=== PATIENT | female | born 1980 | race Caucasian/White ===

== ENCOUNTER 2018-11-15 06:13 | Inpatient (IN) | payer OTHER ==
--- NOTE | 2018-11-11 09:37 | HP ---
Admitting History and Physical - Primary Care Physician PCP: Aric Benítez - Admission Chief Complaint: left breast cancer History of Present Illness: 38 yo female was noted to have a left breast mass on self exam August 2018. The patient underwent a mammo and US which showed some architectural distortion and calcifications toward the periareolar upper outer aspect spanning about 3 cm. US showed the density at 2 oclock as well as left 12 oclock 5 mm mass. The right breast was also noted to have a 7 mm mass at 5 oclock. Patient underwent core bx of these lesions. 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 The left 12 oclcok density was c/w intermediate grade DCIS and the right breast 5 oclock lesion was c/w nodular fibrotic stroma. 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 Patient is now presenting for bilateral mastectomy, left snbx, poss, andx with lympho and OPHELIA reconstruction. History Source: Patient Limitations to Obtaining History: No Limitations - Past Medical History Additional Past Medical History: none - Past Surgical History Past Surgical History: Yes: None Home Medications - Allergies Allergies/Adverse Reactions: Allergies Allergy/AdvReac Type Severity Reaction Status Date / Time No Known Allergies Allergy Verified 11/11/18 09:38 - Home Medications Home Medications: Ambulatory Orders NK [No Known Home Medication] 11/11/18 Family Medical History Family History: Denies Review of Systems - Review of Systems Constitutional: reports: No Symptoms Neck: reports: No Symptoms Cardiovascular: reports: No Symptoms Physical Examination Constitutional: Yes: Well Nourished Cardiovascular: Yes: WNL Respiratory: Yes: WNL Breast(s): Yes: Other (Ptotic B-cup breast with distortion and retraction around the periareolar region of the left nipple areolar complex. Palpable mass approx 2.5 cm noted aroung the left periareolar region. There are no palpable cervical, axillary or supraclavicular adenopathy noted bilaterally.) Problem List - Problems (1) Breast cancer, left Code(s): C50.912 - MALIGNANT NEOPLASM OF UNSPECIFIED SITE OF LEFT FEMALE BREAST Qualifiers: Breast location: overlapping sites of breast Estrogen receptor status: positive Patient sex: female Qualified Code(s): C50.812 - Malignant neoplasm of overlapping sites of left female breast; Z17.0 - Estrogen receptor positive status [ER+] Assessment/Plan Plan: Bilateral mastectomy (right prophylactic), left snbx, poss andx, lymphoscintogram with OPHELIA reconstruction
[2018-11-15 06:43] VITALS: BMI 20.8
[2018-11-15] MEDS ORDERED: BUPIVACAINE HCL/PF 0.25% (2.5MG/ML) 10 ML VIAL ONE (07:04)
[2018-11-15] MEDS ORDERED: LIDOCAINE 1%-EPI 1:100,000 30 ML MDV IJ ONE (07:04)
[2018-11-15] MEDS ORDERED: BUPIVACAINE LIPOSOME/PF (EXPAREL) 266 MG/20 ML VIAL ONE (07:04)
[2018-11-15] MEDS ORDERED: HEPARIN NA (PORCINE) 5,000 UNITS/ML 1ML VIAL ONE ×2 (07:04→14:00)
[2018-11-15] MEDS ORDERED: PAPAVERINE HCL 30 MG/1 ML 10 ML VIAL NR ONE (07:04)
[2018-11-15] MEDS ORDERED: MIDAZOLAM HCL 2 MG/2 ML SINGLE DOSE VIAL ONE (07:31)
[2018-11-15] MEDS ORDERED: fentaNYL CITRATE 250 MCG/5 ML VIAL ONE (07:31)
[2018-11-15] MEDS ORDERED: SUCCINYLCHOLINE CHLORIDE 200 MG/10 ML SYRINGE ONE (07:33)
[2018-11-15] MEDS ORDERED: PROPOFOL 20 ML ONE ×3 (07:33)
[2018-11-15] MEDS ORDERED: ROCURONIUM BROMIDE 50 MG/5 ML SYRINGE ONE ×3 (07:33→10:30)
[2018-11-15] MEDS ORDERED: EPHEDRINE SULFATE/0.9% NACL/PF 50 MG/10 ML SYRINGE NR ONE (07:34)
[2018-11-15] MEDS ORDERED: LIDOCAINE HCL/PF 2% SDV 5ML VIAL ONE (07:36)
[2018-11-15] MEDS ORDERED: ISOSULFAN BLUE 10 MG/ML VIAL SQ ONE (07:38)
[2018-11-15] MEDS ORDERED: DEXMEDETOMIDINE HCL 200 MCG/2 ML IVPB ONE (07:52)
[2018-11-15] MEDS ORDERED: ceFAZolin SODIUM 1 GM VIAL IVPB ONE ×2 (08:40→13:15)
[2018-11-15] MEDS ORDERED: ceFAZolin SODIUM 1 GM VIAL ONE (08:45)
[2018-11-15] MEDS ORDERED: DEXAMETHASONE SOD PHOSPHATE 4 MG/1 ML VIAL ONE ×2 (09:11→12:47)
[2018-11-15] MEDS ORDERED: MINERAL OIL/PETROLATUM,WHITE 3.5 GM TUBE ONE (11:45)
[2018-11-15] MEDS ORDERED: SEVOFLURANE 250 ML BTL ONE (11:45)
[2018-11-15] MEDS ORDERED: CALCIUM CHLORIDE 1 GM/10 ML *DISP.SYRIN ONE ×2 (11:51→12:46)
[2018-11-15] MEDS ORDERED: BUPIVACAINE HCL/PF 0.25% (2.5MG/ML) 10 ML VIAL IJ ONE (12:00)
[2018-11-15] MEDS ORDERED: BUPIVACAINE LIPOSOME/PF (EXPAREL) 266 MG/20 ML VIAL NR ONE (12:00)
[2018-11-15] MEDS ORDERED: KETOROLAC TROMETHAMINE 30 MG/1 ML VIAL ONE (12:45)
[2018-11-15] MEDS ORDERED: LIDOCAINE HCL 2% 100 MG/5 ML DISP.SYRIN ONE (12:46)
[2018-11-15] MEDS ORDERED: MAGNESIUM SULF 50% (8.12 MEQ/2 ML-1 GM VIAL) ONE (12:46)
[2018-11-15] MEDS ORDERED: METOPROLOL TARTRATE 5 MG/5 ML VIAL ONE (12:47)
[2018-11-15] MEDS ORDERED: LIDOCAINE HCL 2% JELLY (5 ML/TUBE) ONE (12:47)
[2018-11-15] MEDS ORDERED: ALBUTEROL SO4 8 GM HFA INHALER IH ONE (12:47)
[2018-11-15] MEDS ORDERED: CLINDAMYCIN PHOSPHATE 600 MG/4 ML VIAL ONE (12:47)
--- NOTE | 2018-11-15 13:08 | OP ---
DATE OF OPERATION: 11/15/2018 PREOPERATIVE DIAGNOSIS: Left breast cancer centrally located. POSTOPERATIVE DIAGNOSIS: Left breast cancer centrally located. PROCEDURE: Bilateral total mastectomies with left axillary sentinel node biopsy followed by axillary lymph node dissection and bilateral deep flap reconstructions. PRIMARY SURGEON: Matthew Brown M.D. HVAC SERVICE MANAGER: MARYANN Michelle PRIMARY SURGEON FOR THE BILATERAL DEEP FLAP RECONSTRUCTIONS: Matthew Jimenez M.D. with his Co-Surgeon: Pardeep Phillip M.D. COMPLICATIONS: None. INDICATIONS: Briefly, the patient is a 38-year-old G4, P4 premenopausal female of descent from [facility]. No family history of breast or ovarian cancer. She noticed a left central periareolar upper outer quadrant breast mass and underwent a mammography and ultrasound in August 2018 showing architectural distortion and pleomorphic calcifications in the left breast central upper quadrant over an area of about 3 cm. Ultrasound showed a left breast 2 o'clock periareolar 1.3 cm density 2 cm from the nipple. She underwent ultrasound-guided core biopsies of the left breast 2 o'clock and 12 o'clock regions and the 2 o'clock region showed a moderately differentiated invasive duct cancer, which was ER/WI positive, HER2/bobo negative and the left breast 12 o'clock region showed DCIS. The patient was advised on undergoing a mastectomy after MRI showed a separate left breast 9 o'clock density as well. She had no adenopathy. She was seen by Plastic Surgery and the patient opted on bilateral mastectomies and deep flap reconstruction. She understood the need for a sentinel node biopsy and possible axillary lymph node dissection. PROCEDURE: She was brought in for the procedure on November 15, 2018. She first went to Nuclear Medicine where lymphoscintigraphy was performed with a periareolar injection of technetium 99. She was then brought to the holding area. In the holding area, site verification was made and informed consent was obtained. She was marked preoperatively by the Plastic surgeons. She was brought into the operating room and laid on the OR table in the supine position. Venodynes were placed on the lower extremities prior to induction. She received 2 g of Ancef prior to incision. She underwent general endotracheal anesthesia. Three mL of Lymphazurine Blue were injected intradermally around the left breast nipple areola complex, massage was instituted. The Plastic surgeons marked out the perforating vessels in the abdominal wall and then the patient was sterilely prepped and draped in the usual fashion with both breasts prepped as well as the abdomen and the left arm was prepped in the field. At this point timeout was performed. The patient did have a Bishop catheter placed prior to prep and draping the patient. The left axis sentinel node biopsy was performed. An incision was made just below the hair-bearing area of the left axilla and dissection was undertaken and a blue lymphatic was easily seen coursing to a hot blue level 1 axillary lymph node. This node was removed, had a 10-second gamma count of 13,453. A 2nd sentinel node was found in the level 2 region with a 10-second gamma count of 10,354 and both of these nodes were sent for frozen section and both nodes came back positive for cancer. Background counts after removal of these 2 nodes was 97. The mastectomy was then performed on the left side through a periareolar incision with the skin sparing approach. Skin flaps were raised using electrocautery superiorly to the level of the clavicle, medially to the level of the sternum, laterally to the level of the latissimus, and inferiorly below the level of the inframammary fold. The breast was taken out of the pectoralis major muscle from medial to lateral completely removed intact. It was oriented with the long lateral, short superior suture. Specimen radiograph showed removal of the clips in question and the breast was weighed. Hemostasis was achieved. A separate lateral anterior margin was taken on the anterior lateral skin flap and sent separately as anterolateral margin with the suture marking the biopsy cavity side. At this time, the axillary lymph node dissection was undertaken through the mastectomy wound. It was a level 1; level 2 dissection using the axillary vein as the superior border of the dissection, latissimus as the lateral border and pec minor as the medial border. The axillary nodes were completely cleared out, then the long thoracic and thoracodorsal nerve was identified and spared throughout its entire course. The 2nd intercostal brachial nerve was also spared. Hemostasis was achieved and the wound was copiously irrigated with warm sterile saline. At this point instruments, gloves, gowns were changed and the right breast was approached. A prophylactic right breast mastectomy was performed through a circumareolar approach removing the entire nipple areola complex in a skin sparing fashion. Again, the skin flap was raised using the cautery. The skin flap was raised superiorly to the level of the clavicle, medially to the level of the sternum, laterally to the level of the latissimus, and inferiorly below the level of the inframammary fold. The breast was taken out of the pectoralis major muscle from medial to lateral and completely removed intact. It was oriented with the long lateral, short superior suture and weighed to allow for appropriate cosmetic result. Hemostasis was achieved and the wound was copiously irrigated with warm sterile saline. At this point, Drs. Jimenez and Marjan had already started harvesting the abdominal wall tissue for the deep flap reconstruction. The rest of the dictation will be dictated by Plastic Surgery, as well as all wound closure. All sponge and needle counts were correct at this point of the case and estimated blood loss was about 200 mL after the bilateral mastectomies. MATTHEW BROWN M.D. CLEO/[id number]
[2018-11-15] MEDS ORDERED: HYDROmorphone HCl 2 MG/ML VIAL ONE ×2 (16:19→17:35)
[2018-11-15] MEDS ORDERED: NEOSTIGMINE METHYLSULFATE 0.5 MG/ML - 10 ML MDV ONE (16:28)
[2018-11-15] MEDS ORDERED: ACETAMINOPHEN 325 MG TABLET (FP) PO PRN (17:26)
[2018-11-15] MEDS ORDERED: DEXTROSE 5%-0.45% SALINE 1,000 ML IV SCH (17:30)
[2018-11-15] MEDS: HYDROmorphone HCl 2 MG/ML VIAL IVPB PRN ×3 (17:35→18:10)
[2018-11-15] MEDS ORDERED: ONDANSETRON 4 MG/2 ML VIAL IVPUSH PRN (17:43)
[2018-11-15] MEDS ORDERED: LACTATED RINGERS SOLUTION 1,000 ML IV SCH (17:45)
[2018-11-15] MEDS ORDERED: ENOXAPARIN NA (PORCINE) 40 MG/0.4 ML DISP.SYRIN SQ ONE ×2 (17:45→19:12)
[2018-11-15] MEDS: DEXTROSE 5%-0.45% SALINE 1,000 ML IV SCH (19:00)
--- NOTE | 2018-11-15 20:24 | CONSULT ---
Consultation: REQUESTING PROVIDER: Dr. Benítez CONSULT REQUEST: We have been asked to medically evaluate this patient for post- op care. HISTORY OF PRESENT ILLNESS: 38 y/o F with no significant PMH who presented s/p b/l mastectomy, L sentinel LN biopsy, deep flap OPHELIA, axillary LN dissection- PO day 0, by Dr. Benítez and Precious. Upon examination, pt lethargic and resting. VS currently stable - afebrile, BP 100/70, HR 98. Per chart, pt underwent core bx of R and L breast lesions prior to sx. Left 2:00 lesion was consistent w/invasive ductal ca ER/DC( +), HER 2 (-). L 12:00 density was c/w intermediate grade DCIS and the R breast 5:00 lesion was c/w nodular fibrotic stroma. 500ml EBL. Pt admitted to ICU for post-op care and f/u. Currently on jose hugger, w/kennedy, and 2 COLEEN drains on R, 3 COLEEN drains on L breast. +kennedy +2 COLEEN drains on R, 3 COLEEN drains on L breast +jose hugger REVIEW OF SYSTEMS: as above PHYSICAL EXAMINATION Vital Signs 11/15/18 11/15/18 11/15/18 17:50 18:05 18:20 Temperature Pulse Rate 65 66 70 Respiratory 14 14 14 Rate Blood Pressure 96/56 L 91/60 90/55 L O2 Sat by Pulse 99 99 99 Oximetry (%) GENERAL: Resting comfortably. in NAD HEAD: Normal with no signs of trauma. EYES: Pupils equal, round and reactive to light EARS, NOSE, THROAT: Ears normal, nares patent, oropharynx clear without exudates. Moist mucous membranes. NECK: Normal range of motion, supple LUNGS: CTA b/l CHEST: +flap w/ doppler pulse . +COLEEN drains b/l with 3-4ml serosanguineous output HEART: Regular rate and rhythm, normal S1 and S2 without murmur, rub or gallop. ABDOMEN: Soft, nontender, not distended, normoactive bowel sounds, no guarding. +horizontal incision . c/d/i LOWER EXTREMITIES: 2+ dp pulses, warm, well-perfused. No calf tenderness. No peripheral edema. NEUROLOGICAL: Cranial nerves II-XII intact. Laboratory Results 11/15/18 11/15/18 11/15/18 06:25 06:25 06:25 Beta HCG, Quant < 1.0 Serum , Qual Cancelled Blood Type AB POSITIVE Antibody Screen Negative 11/15/18 08:15 Beta HCG, Quant Serum , Qual Blood Type AB POSITIVE Antibody Screen ASSESSMENT/PLAN: 38 y/o F with no significant PMH who presented s/p b/l mastectomy, L sentinel LN biopsy, deep flap OPHELIA, axillary LN dissection- PO day 0, by Dr. Tate. #Neuro -intact, AAOx3 #Heme/onc s/p b/l mastectomy, L sentinel LN biopsy, deep flap OPHELIA, axillary LN dissection - PO day 0 -c/w jose hugger to flap - continuous -flap - doppler q1h. call sx immediately if cannot detect -f/u drain output -c/w ancef -lovenox for a/c per sx -asa 325mg qd -tylenol PRN, and dilaudid 1-2 mg IVPB q4h PRN per anesthesia for pain control -zofran PRN for nausea. last qtc 418ms -post-op CBC in AM per sx #F/E/N d51/2ns 125 cc/hr continue to follow lytes clear liq diet. advance as tolerated #PPX lovenox per sx SCD's, TREVIN's #Lines/tubes +kennedy +2 COLEEN drains on R, 3 COLEEN drains on L breast #Dispo admitted to ICU Dispo: We will continue to follow the patient. Thank you for this consultative opportunity. Visit type - Emergency Visit Emergency Visit: No - New Patient This patient is new to me today: Yes Date on this admission: 11/15/18 - Critical Care Critical Care patient: Yes Total Critical Care Time (in minutes): 37 Critical Care Statement: The care of this patient involved high complexity decision making to prevent further life threatening deterioration of the patient 's condition and/or to evaluate & treat vital organ system(s) failure or risk of failure.
[2018-11-15] MEDS ORDERED: HYDROmorphone HCl 2 MG/ML VIAL IVPUSH ONE (20:42)
[2018-11-15] MEDS ORDERED: CEFAZOLIN 1 GM/D5W 1 GM/50 ML BAG IVPB SCH (21:00)
[2018-11-15] MEDS: DOCUSATE SODIUM 100 MG CAPSULE (FP) PO SCH (21:42)
[2018-11-15] MEDS ORDERED: SODIUM CHLORIDE 500 ML IV STA (23:04)
[2018-11-15] MEDS ORDERED: ACETAMINOPHEN 1000 MG/100 ML VIAL (NON FORMULARY) IVPB ONE (23:45)
[2018-11-16] MEDS ORDERED: SODIUM CHLORIDE 500 ML IV STA (00:24)
[2018-11-16] MEDS: HYDROmorphone HCl 2 MG/ML VIAL IVPB PRN ×2 (01:03→04:15)
[2018-11-16 06:32] LABS: HEMATOCRIT 22.5 % (32.4-45.2); HEMOGLOBIN 7.5 GM/dL (10.7-15.3); MCHC 33.5 g/dl (32.0-36.0); MEAN CELL VOLUME 83.7 fl (80-96); MEAN PLT VOLUME 8.1 fl (7.5-11.1); PLATELET COUNT 230 K/MM3 (134-434); RBC 2.69 M/mm3 (3.60-5.2); WHITE BLOOD COUNT 8.6 K/mm3 (4.0-10.0)
[2018-11-16] MEDS: CEFAZOLIN 1 GM in DEXTROSE 5%-WATER - 50 ML IVPB SCH ×4 (06:46→21:29)
[2018-11-16] MEDS ORDERED: PT OWN MED DRAWER 7, Y5N ONE (06:52)
[2018-11-16] MEDS: ACETAMINOPHEN 1000 MG/100 ML VIAL (NON FORMULARY) IVPB PRN ×3 (06:56→20:10)
[2018-11-16 07:05] LABS: BLOOD UREA NITROGEN 6.2 mg/dL (7-18); CALCIUM 7.3 mg/dL (8.5-10.1); CREATININE 0.6 mg/dL (0.55-1.3); MAGNESIUM 1.3 mg/dL (1.8-2.4); PHOSPHOROUS 3.4 mg/dL (2.5-4.9); POTASSIUM 3.7 mmol/L (3.5-5.1)
[2018-11-16] MEDS ORDERED: DEXTROSE 5%-WATER - 50 ML IVPB ONE ×4 (07:59→23:29)
[2018-11-16] MEDS ORDERED: ceFAZolin SODIUM 1 GM VIAL ONE ×4 (07:59→23:28)
[2018-11-16] MEDS ORDERED: MAGNESIUM SULF 50% (8.12 MEQ/2 ML-1 GM VIAL) IVPB ONE (08:00)
--- NOTE | 2018-11-16 08:02 | PN ---
Progress Note (short form) - Note Progress Note: POD 1, s/p Bilateral mastectomy, left sentinel lymph node biopsy, axillary lymph node dissection, reconstruction with bilateral OPHELIA flaps Pt seen and examined. Reports pain in the right side of her abdomen (RLQ). No n/ v overnight. Having dizziness overnight reports it occurs after administration of pain meds. Has not been oob yet. Bishop in place. Denies cp/sob, calf tenderness. Vital Signs Temp 98.4 F 11/16/18 06:00 Pulse 92 H 11/16/18 06:00 Resp 19 11/16/18 06:00 BP 88/57 L 11/16/18 06:00 Pulse Ox 98 11/15/18 21:00 Intake & Output 11/15/18 11/15/18 11/16/18 11:59 23:59 11:59 Intake Total 4250 700 2575 Output Total 1050 1162 620 Balance 3200 -462 1955 Intake: IV 4250 700 2375 D5-1/2Ns - 1,000 ml @ 125 1375 mls/hr IV ASDIR ALTA Rx#: [id number] Normal Saline - 500 ml @ 500 500 mls/hr IV ASDIR STA Rx#:[id number] Normal Saline - 500 ml @ 500 500 mls/hr IV ASDIR STA Rx#:[id number] IVPB 200 Oral 0 Output: Drainage 362 120 #1 Right Upper Breast 80 40 #2 Right Lower Abdomen 32 15 #3 Left Upper Breast 47 25 #4 Left Upper Chest 60 30 Left Abdomen 12 10 Urine 800 800 500 Bishop 500 Estimated Blood Loss 250 Other: Voiding Method Indwelling Catheter Bowel Movement No CBC, BMP 11/16/18 05:45 11/16/18 05:45 Gen: awake, alert, nad ENT: Pale, + conjunctival pallor Chest: Drains (chest and abdominal) in place with scant serosanguinous drainage in reservoirs. All drains stripped. Bilateral OPHELIA flaps appear normal in color , + surrounding ecchymosis. Incisions c/d/i. No erythema or drainage. Abdomen: incision intact with Prineo dressing in place. Minimal ecchymosis, no erythema or drainage. Minimal edema noted. Umbilical dressing c/d/i, umbilical incisions intact with minimal ecchymosis, no erythema or drainage. LE's: b/l calf soft, nt, no edema A/P: 38 y/o F with recent diagnosis of L invasive ductal ca ER/LA pos HER 2 negative, now POD 1, s/p Bilateral mastectomy, left sentinel lymph node biopsy, axillary lymph node dissection, reconstruction with bilateral OPHELIA flaps. Drain outputs: R upper breast: 120ml total since OR (60ml overnight) R lower abdomen: 47ml since OR (25ml ON) L upper breast: 72ml since OR (40ml ON) L upper chest: 90ml since OR (50ml ON) L lower abdomen: 22 ml since OR (15ml overnight) Per RN note in EMR pt with 30ml urine output at 11:37pm, 500ml bolus given. UOP 500ml for remainder of shift with additional 350ml this morning. H/H 7.5/22.5 this AM (preop 12.7/38.8 on preop labs from 11/14). On examination with Dr Phillip pt normotensive without tachycardia. Will re-evaluate pt for possible transfusion later this morning when she gets oob. -Pain regimen adjusted: Dilaudid d/c'ed, Toradol 30mg q6hrs prn, Ofirmev 1g q6hrs scheduled, Oxy 5/10mg q4hrs prn -Monitor VS -Continue OPHELIA flap checks q1hr for 24 hrs -Monitor and record drain outputs -DVT prophylaxis with Lovenox 40mg qd, scds, early ambulation -Keep Nadine hugger in place -Asa 325qd for flaps -Bowel regimen -Feosol 325mg TID ordered -Advance diet to clears (No caffeine, no chocolate), keep IVF at 75ml/hr may heplock IV when pt tolerating po -OOB with PT (pt must remain flexed at core) -CBC ordered for AM -Will f/u this afternoon pt seen and examined with attending Dr Phillip
[2018-11-16] MEDS ORDERED: oxyCODONE HCL 5 MG TABLET PO PRN (08:27)
[2018-11-16] MEDS ORDERED: POLYETHYLENE GLYCOL 3350 119 GM BTL PO PRN (08:29)
--- NOTE | 2018-11-16 09:13 | PN ---
Progress Note, Physician Chief Complaint: S/P bilateral mastectomy with left andx and OPHELIA reconstruction POD#1 History of Present Illness: Patient was seen today at the bedside and reports an episode of vomiting after attempting clear liquid intake this am. She also is having right lower quad abdominal pain near the incision. She denies any SOB or awareness of tachycardia. - Current Medication List Current Medications: Active Medications Acetaminophen (Ofirmev Injection -) 1,000 mg IVPB Q6H PRN PRN Reason: PAIN 1-3 Last Admin: 11/16/18 06:56 Dose: 1,000 mg Ascorbic Acid (Vitamin C -) 250 mg PO BID [facility] Aspirin (Ecotrin -) 325 mg PO DAILY [facility] Docusate Sodium (Colace -) 100 mg PO BID [facility] Last Admin: 11/15/18 21:42 Dose: Not Given Enoxaparin Sodium (Lovenox -) 40 mg SQ DAILY [facility] Ferrous Sulfate (Feosol -) 325 mg PO TIDCM [facility] Dextrose/Sodium Chloride (D5-1/2ns -) 1,000 mls @ 125 mls/hr IV ASDIR [facility] Last Admin: 11/15/18 19:00 Dose: 200 mls Cefazolin Sodium 1 gm/ (Dextrose) 50 mls @ 100 mls/hr IVPB Q6H-IV [facility] Stop: 11/17/18 21:29 Last Admin: 11/16/18 06:46 Dose: 100 mls/hr Ketorolac Tromethamine (Toradol Injection -) 30 mg IVPUSH Q6H PRN PRN Reason: PAIN LEVEL 4 - 6 Stop: 11/21/18 08:30 Ondansetron HCl (Zofran Injection) 4 mg IVPUSH Q6H PRN PRN Reason: NAUSEA AND/OR VOMITING Oxycodone HCl (Roxicodone -) 5 mg PO Q4H PRN PRN Reason: PAIN 4-6; IF KETORLAC NT WORK Oxycodone HCl (Roxicodone -) 10 mg PO Q4H PRN PRN Reason: PAIN LEVEL 7-10 Polyethylene Glycol (Miralax (For Daily Use) -) 17 gm PO DAILY PRN PRN Reason: CONSTIPATION Promethazine HCl (Phenergan Injection -) 12.5 mg IVPUSH Q6H PRN PRN Reason: NAUSEA-FOR RESCUE AFTER 15 MIN Senna (Senna -) 1 tab PO HS ALTA - Objective Vital Signs: Vital Signs Temperature 98.4 F 11/16/18 06:00 Pulse Rate 92 H 11/16/18 06:00 Respiratory Rate 11/16/18 06:00 Blood Pressure 88/57 L 11/16/18 06:00 O2 Sat by Pulse Oximetry (%) 98 11/15/18 21:00 Constitutional: Yes: Calm HENT: Yes: Other (Patient's lips and face are pale.) Labs: CBC, BMP 11/16/18 05:45 11/16/18 05:45 Problem List - Problems (1) Breast cancer, left Code(s): C50.912 - MALIGNANT NEOPLASM OF UNSPECIFIED SITE OF LEFT FEMALE BREAST Qualifiers: Breast location: overlapping sites of breast Estrogen receptor status: positive Patient sex: female Qualified Code(s): C50.812 - Malignant neoplasm of overlapping sites of left female breast; Z17.0 - Estrogen receptor positive status [ER+]
[2018-11-16] MEDS: DOCUSATE SODIUM 100 MG CAPSULE (FP) PO SCH ×2 (09:27→21:29)
[2018-11-16] MEDS: ASPIRIN 325 MG ENTERIC COATED TABLET (FP) PO SCH (09:27)
[2018-11-16] MEDS: ENOXAPARIN NA (PORCINE) 40 MG/0.4 ML DISP.SYRIN SQ SCH (09:28)
[2018-11-16] MEDS: KETOROLAC TROMETHAMINE 30 MG/1 ML VIAL IVPUSH PRN ×3 (09:28→23:31)
--- NOTE | 2018-11-16 09:32 | PN ---
Progress Note, Physician Chief Complaint: S/P bilateral mastectomy with left ANDx and OPHELIA reconstruction POD#1 History of Present Illness: Patient was seen this am at the bedside and reports an episode of vomiting after attempting clear liquids this am. She reports pain in the right lower quad near the incision. She has not gotten out of bed yet but does report some mild dizziness. - Current Medication List Current Medications: Active Medications Acetaminophen (Ofirmev Injection -) 1,000 mg IVPB Q6H PRN PRN Reason: PAIN 1-3 Last Admin: 11/16/18 06:56 Dose: 1,000 mg Ascorbic Acid (Vitamin C -) 250 mg PO BID [facility] Aspirin (Ecotrin -) 325 mg PO DAILY [facility] Last Admin: 11/16/18 09:27 Dose: 325 mg Docusate Sodium (Colace -) 100 mg PO BID [facility] Last Admin: 11/16/18 09:27 Dose: 100 mg Enoxaparin Sodium (Lovenox -) 40 mg SQ DAILY [facility] Last Admin: 11/16/18 09:28 Dose: 40 mg Ferrous Sulfate (Feosol -) 325 mg PO TIDCM [facility] Dextrose/Sodium Chloride (D5-1/2ns -) 1,000 mls @ 125 mls/hr IV ASDIR [facility] Last Admin: 11/15/18 19:00 Dose: 200 mls Cefazolin Sodium 1 gm/ (Dextrose) 50 mls @ 100 mls/hr IVPB Q6H-IV [facility] Stop: 11/17/18 21:29 Last Admin: 11/16/18 09:27 Dose: 100 mls/hr Ketorolac Tromethamine (Toradol Injection -) 30 mg IVPUSH Q6H PRN PRN Reason: PAIN LEVEL 4 - 6 Stop: 11/21/18 08:30 Last Admin: 11/16/18 09:28 Dose: 30 mg Ondansetron HCl (Zofran Injection) 4 mg IVPUSH Q6H PRN PRN Reason: NAUSEA AND/OR VOMITING Oxycodone HCl (Roxicodone -) 5 mg PO Q4H PRN PRN Reason: PAIN 4-6; IF KETORLAC NT WORK Oxycodone HCl (Roxicodone -) 10 mg PO Q4H PRN PRN Reason: PAIN LEVEL 7-10 Polyethylene Glycol (Miralax (For Daily Use) -) 17 gm PO DAILY PRN PRN Reason: CONSTIPATION Promethazine HCl (Phenergan Injection -) 12.5 mg IVPUSH Q6H PRN PRN Reason: NAUSEA-FOR RESCUE AFTER 15 MIN Senna (Senna -) 1 tab PO HS [facility] - Objective Vital Signs: Vital Signs Temperature 98.4 F 11/16/18 06:00 Pulse Rate 92 H 11/16/18 06:00 Respiratory Rate 19 11/16/18 06:00 Blood Pressure 88/57 L 11/16/18 06:00 O2 Sat by Pulse Oximetry (%) 98 11/15/18 21:00 Constitutional: Yes: Well Nourished, Calm HENT: Yes: Other (Facial pallor noted) Gastrointestinal: Yes: Other (Abdominal incision is clean and dry. Bilateral JPs with serosanginous discharge noted. Positive pain in the right lower quad to palpation.) Breast(s): Yes: Other (Chest flaps and OPHELIA flap with good color. Warm to touch. No erythema or discharge noted.Positive dopplers as recorded earlier.) Labs: CBC, BMP 11/16/18 05:45 11/16/18 05:45 Problem List - Problems (1) Breast cancer, left Assessment/Plan: S/P bilateral mastectomy with OPHELIA reconstruction POD#1 Anemia Code(s): C50.912 - MALIGNANT NEOPLASM OF UNSPECIFIED SITE OF LEFT FEMALE BREAST Qualifiers: Breast location: overlapping sites of breast Estrogen receptor status: positive Patient sex: female Qualified Code(s): C50.812 - Malignant neoplasm of overlapping sites of left female breast; Z17.0 - Estrogen receptor positive status [ER+] Assessment/Plan Plan: Case discussed with Dr. Benítez. Will repeat CBC this pm and will consider blood transfusion at this time. OOB with assistance this pm Continue monitoring of vitals including JPs and UO Pain management as per anesthesia
[2018-11-16] MEDS: SODIUM CHLORIDE 1,000 ML IV SCH (10:29)
[2018-11-16] MEDS ORDERED: ONDANSETRON 4 MG/2 ML VIAL IVPUSH PRN (11:26)
[2018-11-16] MEDS ORDERED: ONDANSETRON 4 MG/2 ML VIAL IVPB PRN (11:37)
--- NOTE | 2018-11-16 11:39 | PN ---
Progress Note (short form) - Note Progress Note: Anesthesia postop note, POD#1 S/P bilateral mastectomy with OPHELIA reconstruction under GA. Pat seen and examined. VSS. C/O pain at surgical sites, right abdomen and breast , score 4/10. On po analgetics. No apparent post anesthesia complications.
--- NOTE | 2018-11-16 11:54 | PN ---
Teaching Attending Note Name of Resident: Ed Rodriguez ATTENDING PHYSICIAN STATEMENT I saw and evaluated the patient. I reviewed the resident's note and discussed the case with the resident. I agree with the resident's findings and plan as documented. SUBJECTIVE: Pt seen and examined in the ICU. Pain relatively controlled. Denies shortness of breath or chest pain. OBJECTIVE: Vital Signs Period Temp Pulse Resp BP Sys/Ryan Pulse Ox Last 24 Hr 98.2 F-98.7 F 60-109 12-19 86-117/22-69 96-100 Intake & Output 11/13/18 11/14/18 11/15/18 11/16/18 23:59 23:59 23:59 23:59 Intake Total 4950 2575 Output Total 2212 620 Balance 2738 1955 Weight 51.71 kg Gen: NAD at rest Heart: RRR Lung: decreased breath sounds at the bases Abd: soft, dressings in place Ext: no edema Drains with serosanguinous fluid CBC, BMP 11/16/18 05:45 11/16/18 05:45 Active Medications Acetaminophen (Ofirmev Injection -) 1,000 mg IVPB Q6H PRN PRN Reason: PAIN 1-3 Last Admin: 11/16/18 06:56 Dose: 1,000 mg Ascorbic Acid (Vitamin C -) 250 mg PO BID [facility] Aspirin (Ecotrin -) 325 mg PO DAILY [facility] Last Admin: 11/16/18 09:27 Dose: 325 mg Docusate Sodium (Colace -) 100 mg PO BID [facility] Last Admin: 11/16/18 09:27 Dose: 100 mg Enoxaparin Sodium (Lovenox -) 40 mg SQ DAILY [facility] Last Admin: 11/16/18 09:28 Dose: 40 mg Ferrous Sulfate (Feosol -) 325 mg PO TIDCM [facility] Dextrose/Sodium Chloride (D5-1/2ns -) 1,000 mls @ 125 mls/hr IV ASDIR [facility] Last Admin: 11/15/18 19:00 Dose: 200 mls Cefazolin Sodium 1 gm/ (Dextrose) 50 mls @ 100 mls/hr IVPB Q6H-IV [facility] Stop: 11/17/18 21:29 Last Admin: 11/16/18 09:27 Dose: 100 mls/hr Sodium Chloride (Normal Saline -) 1,000 mls @ 1,000 mls/hr IV ASDIR [facility] Last Admin: 11/16/18 10:29 Dose: 1,000 mls/hr Ketorolac Tromethamine (Toradol Injection -) 30 mg IVPUSH Q6H PRN PRN Reason: PAIN LEVEL 4 - 6 Stop: 11/21/18 08:30 Last Admin: 11/16/18 09:28 Dose: 30 mg Ondansetron HCl (Zofran Injection) 8 mg IVPB Q6H PRN PRN Reason: NAUSEA AND/OR VOMITING Stop: 11/17/18 11:25 Oxycodone HCl (Roxicodone -) 5 mg PO Q4H PRN PRN Reason: PAIN 4-6; IF KETORLAC NT WORK Oxycodone HCl (Roxicodone -) 10 mg PO Q4H PRN PRN Reason: PAIN LEVEL 7-10 Polyethylene Glycol (Miralax (For Daily Use) -) 17 gm PO DAILY PRN PRN Reason: CONSTIPATION Promethazine HCl (Phenergan Injection -) 12.5 mg IVPUSH Q6H PRN PRN Reason: NAUSEA-FOR RESCUE AFTER 15 MIN Senna (Senna -) 1 tab PO [facility] ASSESSMENT AND PLAN: Bilateral Breast Ca s/p Bilateral Mastectomies/LN biopsy/OPHELIA/LN dissection Anemia - pain control - incentive spirometry - flap monitoring - monitor drain output - monitor H/H - IVF - DVT prophylaxis - continue ICU monitoring for flap monitoring
[2018-11-16] MEDS: FERROUS SO4 325 MG TABLET (FP) PO SCH ×2 (12:28→18:38)
--- NOTE | 2018-11-16 15:11 | PN ---
Physical Exam: SUBJECTIVE: Patient seen and examined at bedside in the ICU. Patient resting comfortably. Reports that her pain is well controlled. Denies chest pain, denies shortness of breath, denies bleeding or discharge from the incision. OBJECTIVE: Vital Signs Period Temp Pulse Resp BP Sys/Ryan Pulse Ox Last 24 Hr 98.2 F-98.7 F 60-109 12-19 86-117/22-69 96-100 GENERAL: The patient is awake, alert, and fully oriented, in no acute distress. HEAD: Normal with no signs of trauma. EYES: PERRL, extraocular movements intact, sclera anicteric, conjunctiva clear. No ptosis. ENT: Ears normal, nares patent, oropharynx clear without exudates, moist mucous membranes. NECK: Trachea midline, full range of motion, supple. LUNGS: Breath sounds equal, clear to auscultation bilaterally, no wheezes, no crackles, no accessory muscle use. HEART: Regular rate and rhythm, S1, S2 without murmur, rub or gallop. CHEST: Bandanges, dressings in place. Serosanguinous fluid in drains. Incisions clean/dry/intact. ABDOMEN: Soft, nontender, nondistended. Bandage and dressing in place. Incision clean/dry/intact. EXTREMITIES: 2+ pulses, warm, well-perfused, no edema. NEUROLOGICAL: Cranial nerves II through XII grossly intact. Normal speech, gait not observed. PSYCH: Normal mood, normal affect. SKIN: Warm, dry, normal turgor, no rashes or lesions noted Laboratory Results - last 24 hr 11/16/18 11/16/18 05:45 05:45 WBC 8.6 RBC 2.69 L Hgb 7.5 L Hct 22.5 L MCV 83.7 MCH 28.0 MCHC 33.5 RDW 14.0 Plt Count 230 MPV 8.1 Sodium 139 Potassium 3.7 Chloride 106 Carbon Dioxide 26 Anion Gap 6 L BUN 6.2 L Creatinine 0.6 Est GFR (CKD-EPI)AfAm 134.96 Est GFR (CKD-EPI)NonAf 116.44 Random Glucose 118 H Calcium 7.3 L Phosphorus 3.4 Magnesium 1.3 L Active Medications Generic Name Dose Route Start Last Admin Trade Name Freq PRN Reason Stop Dose Admin Acetaminophen 1,000 mg 11/16/18 06:47 11/16/18 13:58 Ofirmev Injection - IVPB 1,000 mg Q6H PRN Administration PAIN 1-3 Ascorbic Acid 250 mg 11/16/18 10:00 Vitamin C - PO BID [facility] Aspirin 325 mg 11/16/18 10:00 11/16/18 09:27 Ecotrin - PO 325 mg DAILY [facility] Administration Docusate Sodium 100 mg 11/15/18 22:00 11/16/18 09:27 Colace - PO 100 mg BID [facility] Administration Enoxaparin Sodium 40 mg 11/16/18 10:00 11/16/18 09:28 Lovenox - SQ 40 mg DAILY [facility] Administration Ferrous Sulfate 325 mg 11/16/18 12:00 11/16/18 12:28 Feosol - PO 325 mg TIDCM [facility] Administration Dextrose/Sodium Chloride 1,000 mls @ 125 mls/hr 11/15/18 17:30 11/15/18 19:00 D5-1/2ns - IV 200 mls ASDIR [facility] Administration Cefazolin Sodium 1 gm/ 50 mls @ 100 mls/hr 11/16/18 06:45 11/16/18 14:02 Dextrose IVPB 11/17/18 21:29 100 mls/hr Q6H-IV [facility] Administration Sodium Chloride 1,000 mls @ 1,000 mls/hr 11/16/18 10:30 11/16/18 10:29 Normal Saline - IV 1,000 mls/hr ASDIR [facility] Administration Ketorolac Tromethamine 30 mg 11/16/18 08:31 11/16/18 09:28 Toradol Injection - IVPUSH 11/21/18 08:30 30 mg Q6H PRN Administration PAIN LEVEL 4 - 6 Ondansetron HCl 8 mg 11/16/18 11:37 Zofran Injection IVPB 11/17/18 11:25 Q6H PRN NAUSEA AND/OR VOMITING Oxycodone HCl 5 mg 11/16/18 08:27 Roxicodone - PO Q4H PRN PAIN 4-6; IF KETORLAC NT WORK Oxycodone HCl 10 mg 11/16/18 08:27 11/16/18 12:28 Roxicodone - PO 10 mg Q4H PRN Administration PAIN LEVEL 7-10 Polyethylene Glycol 17 gm 11/16/18 08:29 Miralax (For Daily Use) - PO DAILY PRN CONSTIPATION Promethazine HCl 12.5 mg 11/15/18 17:43 Phenergan Injection - IVPUSH Q6H PRN NAUSEA-FOR RESCUE AFTER 15 MIN Senna 1 tab 11/16/18 22:00 Senna - PO HS [facility] ASSESSMENT/PLAN: 38 y/o F with PMH of bilateral breast CA and anemia presented s/p b/l mastectomy , L sentinel LN biopsy, deep flap OPHELIA, axillary LN dissection- PO day 1, by Dr. Benítez and Precious. #Neuro -intact, AAOx3 #Heme/onc s/p b/l mastectomy, L sentinel LN biopsy, deep flap OPHELIA, axillary LN dissection - PO day 0 -c/w jose hugger to flap - continuous -flap - doppler q1h. call sx immediately if cannot detect -monitor drain output -c/w ancef -asa 325mg qd -tylenol/toradol PRN, and oxycodone 5mg/10mg PO q4h PRN per anesthesia for pain control -zofran increased from 4mg to 8mg -post-op CBC in AM per surgery -monitor H/H #Cardio -1L bolus for hypotension #Pulm -continue incentive spirometry #F/E/N D5 1/2NS 125 cc/hr continue to follow lytes clear liq diet. advance as tolerated #PPX lovenox per surgery SCD's, TREVIN's #Lines/tubes +kennedy +2 COLEEN drains on R, 3 COLEEN drains on L breast #Dispo continue ICU care and flap monitoring Visit type - Emergency Visit Emergency Visit: No - New Patient This patient is new to me today: No - Critical Care Critical Care patient: Yes Total Critical Care Time (in minutes): 35 Critical Care Statement: The care of this patient involved high complexity decision making to prevent further life threatening deterioration of the patient 's condition and/or to evaluate & treat vital organ system(s) failure or risk of failure. ATTENDING PHYSICIAN STATEMENT I saw and evaluated the patient. I reviewed the resident's note and discussed the case with the resident. I agree with the resident's findings and plan as documented. SUBJECTIVE: OBJECTIVE: ASSESSMENT AND PLAN:
[2018-11-16 15:49] LABS: HEMATOCRIT 23.8 % (32.4-45.2); HEMOGLOBIN 7.6 GM/dL (10.7-15.3); MCH 27.2 pg (25.7-33.7); MCHC 32.1 g/dl (32.0-36.0); MEAN CELL VOLUME 84.8 fl (80-96); MEAN PLT VOLUME 8.3 fl (7.5-11.1); PLATELET COUNT 207 K/MM3 (134-434); RBC 2.81 M/mm3 (3.60-5.2); RDW 14.1 % (11.6-15.6); WHITE BLOOD COUNT 6.9 K/mm3 (4.0-10.0)
--- NOTE | 2018-11-16 16:27 | PN ---
Progress Note (short form) - Note Progress Note: Pt seen at noon and again at 4pm. Pts daughter/family bedside. At noon pt with slight improvement in dizziness, vitals stable from Am exam. Tolerating change in pain regimen with good relief. Per daughter and PT notes, PT attempted to walk pt around 330pm, pt with increased dizziness and bp in low 90s (systolic), tachy to low 100s. Repeat cbc stable from this AM. D/w attending, pt stable will hold off on transfusion at this time.
[2018-11-16] MEDS: DEXTROSE 5%-0.45% SALINE 1,000 ML IV SCH (18:38)
[2018-11-16] MEDS: PROMETHAZINE HCL 25 MG/1 ML VIAL IVPUSH PRN (18:38)
[2018-11-16] MEDS: ASCORBIC ACID 250 MG TABLET (FP) PO SCH ×2 (18:40→21:29)
--- NOTE | 2018-11-16 19:01 | PN ---
Progress Note, Physician Chief Complaint: Left breast cancer central and upper outer quadrants History of Present Illness: The patient was diagnosed with a central/upper outer quadrant periareolar breast cancer which was ER+/[place]+ Her2- and underwent bilateral total mastectomies with left SLN biopsy followed by axillary lymph node dissection with prophylactic right mastectomy and bilateral DOEP flap reconstructions on November 15, 2018. She was admitted postoperatively for flap monitoring and pain management. - Current Medication List Current Medications: Active Medications Acetaminophen (Ofirmev Injection -) 1,000 mg IVPB Q6H PRN PRN Reason: PAIN 1-3 Last Admin: 11/16/18 13:58 Dose: 1,000 mg Ascorbic Acid (Vitamin C -) 250 mg PO BID [facility] Last Admin: 11/16/18 18:40 Dose: 250 mg Aspirin (Ecotrin -) 325 mg PO DAILY [facility] Last Admin: 11/16/18 09:27 Dose: 325 mg Docusate Sodium (Colace -) 100 mg PO BID [facility] Last Admin: 11/16/18 09:27 Dose: 100 mg Enoxaparin Sodium (Lovenox -) 40 mg SQ DAILY [facility] Last Admin: 11/16/18 09:28 Dose: 40 mg Ferrous Sulfate (Feosol -) 325 mg PO TIDCM [facility] Last Admin: 11/16/18 18:38 Dose: 325 mg Dextrose/Sodium Chloride (D5-1/2ns -) 1,000 mls @ 125 mls/hr IV ASDIR [facility] Last Admin: 11/16/18 18:38 Dose: Not Given Cefazolin Sodium 1 gm/ (Dextrose) 50 mls @ 100 mls/hr IVPB Q6H-IV [facility] Stop: 11/17/18 21:29 Last Admin: 11/16/18 14:02 Dose: 100 mls/hr Sodium Chloride (Normal Saline -) 1,000 mls @ 1,000 mls/hr IV ASDIR [facility] Last Admin: 11/16/18 10:29 Dose: 1,000 mls/hr Ketorolac Tromethamine (Toradol Injection -) 30 mg IVPUSH Q6H PRN PRN Reason: PAIN LEVEL 4 - 6 Stop: 11/21/18 08:30 Last Admin: 11/16/18 15:00 Dose: 30 mg Ondansetron HCl (Zofran Injection) 8 mg IVPB Q6H PRN PRN Reason: NAUSEA AND/OR VOMITING Stop: 11/17/18 11:25 Oxycodone HCl (Roxicodone -) 5 mg PO Q4H PRN PRN Reason: PAIN 4-6; IF KETORLAC NT WORK Oxycodone HCl (Roxicodone -) 10 mg PO Q4H PRN PRN Reason: PAIN LEVEL 7-10 Last Admin: 11/16/18 12:28 Dose: 10 mg Polyethylene Glycol (Miralax (For Daily Use) -) 17 gm PO DAILY PRN PRN Reason: CONSTIPATION Promethazine HCl (Phenergan Injection -) 12.5 mg IVPUSH Q6H PRN PRN Reason: NAUSEA-FOR RESCUE AFTER 15 MIN Last Admin: 11/16/18 18:38 Dose: 12.5 mg Senna (Senna -) 1 tab PO HS [facility] - Objective Vital Signs: Vital Signs Temperature 98.4 F 11/16/18 06:00 Pulse Rate 98 H 11/16/18 14:00 Respiratory Rate 18 11/16/18 14:00 Blood Pressure 90/60 11/16/18 14:00 O2 Sat by Pulse Oximetry (%) 98 11/16/18 09:00 Constitutional: Yes: Well Nourished, No Distress Eyes: Yes: WNL HENT: Yes: Atraumatic, Normocephalic Neck: Yes: WNL Cardiovascular: Yes: Regular Rate and Rhythm, Tachycardia (Occasional mild tachycardia with pain) Respiratory: Yes: WNL Gastrointestinal: Yes: Normal Bowel Sounds ...Rectal Exam: Yes: Deferred Genitourinary: Yes: WNL Breast(s): Yes: Other (Bilateral mastecomy wounds clean, dry, and intact. Drains functioning well. Excellent dopplerable signals) Musculoskeletal: Yes: WNL Extremities: Yes: WNL Integumentary: Yes: WNL Wound/Incision: Yes: Clean/Dry, Well Approximated Neurological: Yes: Alert, Oriented Psychiatric: Yes: WNL Labs: CBC, BMP 11/16/18 15:10 11/16/18 05:45 Problem List - Problems (1) Breast cancer, left Assessment/Plan: The patient is doing well POD #1 s/p bilateral total mastectomies with a left sentinel lymph node biopsy followed by axillary lymph node dissection for a node positive central left breast cancer. She had bilateral OPHELIA flap reconstructions. Her wounds are clean, dry, and intact and her drains are functioning well. She has good dopplerable signals and her skin flaps are warm and viable. She is a bit light headed with occasional tachycardia with pain. Her H/H is low but has remained stable we are currently holding off on transfusion. Last H/H 7.7/23.8. Continue kennedy until OOB tomorrow AM. Recheck H/H in AM. OOB to chair in AM. Continue flap monitoring with doppler checks and antibiotics. Code(s): C50.912 - MALIGNANT NEOPLASM OF UNSPECIFIED SITE OF LEFT FEMALE BREAST Qualifiers: Breast location: overlapping sites of breast Estrogen receptor status: positive Patient sex: female Qualified Code(s): C50.812 - Malignant neoplasm of overlapping sites of left female breast; Z17.0 - Estrogen receptor positive status [ER+]
[2018-11-16] MEDS: SENNOSIDES 8.6MG TABLET (FP) PO SCH (21:29)
[2018-11-16] MEDS ORDERED: CEFAZOLIN 1 GM in DEXTROSE 5%-WATER - 50 ML IVPB SCH (21:30)
[2018-11-17] MEDS: CEFAZOLIN 1 GM in DEXTROSE 5%-WATER - 50 ML IVPB SCH ×4 (02:21→21:38)
[2018-11-17] MEDS: PROMETHAZINE HCL 25 MG/1 ML VIAL IVPUSH PRN (02:45)
[2018-11-17] MEDS: ACETAMINOPHEN 1000 MG/100 ML VIAL (NON FORMULARY) IVPB PRN (02:46)
[2018-11-17 07:17] LABS: BASO % 0.2 % (0-2.0); HEMATOCRIT 21.4 % (32.4-45.2); HEMOGLOBIN 7.1 GM/dL (10.7-15.3); LYMPH % 13.3 % (8-40); MCH 28.1 pg (25.7-33.7); MCHC 33.3 g/dl (32.0-36.0); MEAN CELL VOLUME 84.4 fl (80-96); MEAN PLT VOLUME 8.7 fl (7.5-11.1); MONO % 4.5 % (3.8-10.2); PLATELET COUNT 195 K/MM3 (134-434); RBC 2.53 M/mm3 (3.60-5.2); RDW 14.2 % (11.6-15.6); WHITE BLOOD COUNT 6.6 K/mm3 (4.0-10.0)
--- NOTE | 2018-11-17 07:47 | PN ---
Progress Note (short form) - Note Progress Note: POD 2, s/p Bilateral mastectomy, left sentinel lymph node biopsy, axillary lymph node dissection, reconstruction with bilateral OPHELIA flaps Pt seen and examined. Reports pain has improved slightly. Had 2 episodes of emesis yesterday after attempting PO. Continues to have some dizziness, slightly improved. Did not get oob yesterday due to dizziness/low bp. Bishop in place. Denies cp/sob, calf tenderness. Vital Signs Temp 99 F 11/17/18 02:00 Pulse 82 11/17/18 06:00 Resp 17 11/17/18 06:00 BP 91/63 11/17/18 06:00 Pulse Ox 98 11/16/18 19:48 Intake & Output 11/16/18 11/16/18 11/17/18 11:59 23:59 11:59 Intake Total 2575 1850 Output Total 620 1760 2200 Balance 1954 -1759 Intake: IV 2375 1500 D5-1/2Ns - 1,000 ml @ 125 1375 1500 mls/hr IV ASDIR [facility] Rx#: [id number] Normal Saline - 500 ml @ 500 500 mls/hr IV ASDIR [facility] Rx#:[id number] Normal Saline - 500 ml @ 500 500 mls/hr IV ASDIR [facility] Rx#:[id number] IVPB 200 300 Oral 0 50 Output: Drainage 120 260 200 #1 Right Upper Breast 40 60 20 #2 Right Lower Abdomen 15 40 20 #3 Left Upper Breast 25 20 30 #4 Left Upper Chest 30 90 100 Left Abdomen 10 50 30 Urine 500 1500 2000 Bishop 500 1500 2000 Other: Voiding Method Indwelling Catheter Indwelling Catheter Bowel Movement No No CBC, BMP 11/16/18 05:45 Gen: awake, alert, nad ENT: Pale, + conjunctival pallor Chest: Drains (chest and abdominal) in place with scant serosanguinous drainage in reservoirs. All drains stripped. Bilateral OPHELIA flaps warm and viable, + surrounding ecchymosis. Incisions c/d/i. No erythema or drainage. Abdomen: incision intact with Prineo dressing in place. Minimal ecchymosis, no erythema or drainage. Minimal edema noted. Umbilical dressing c/d/i, umbilical incisions intact with minimal ecchymosis, no erythema or drainage. LE's: b/l calf soft, nt, no edema A/P: 38 y/o F with recent diagnosis of L invasive ductal ca ER/[place] pos HER 2 negative, now POD 2, s/p Bilateral mastectomy, left sentinel lymph node biopsy, axillary lymph node dissection, reconstruction with bilateral OPHELIA flaps. Drain outputs: R upper breast: 20ml Overnight R lower abdomen: 20ml overnight L upper breast: 30ml overnight L upper chest: 100ml overnight L lower abdomen: 30 ml overnight Bishop 2L overnight -Continue current pain regimen Toradol 30mg q6hrs prn, Ofirmev 1g q6hrs scheduled, Oxy 5/10mg q4hrs prn -Morning labs pending -Monitor VS -Continue OPHELIA flap checks q2hrs until noon then q4hrs -Monitor and record drain outputs -DVT prophylaxis with Lovenox 40mg qd, scds, early ambulation -Keep Nadine hugger in place -Asa 325qd for flaps -Bowel regimen -Feosol 325mg TID ordered -Advance diet to clears (No caffeine, no chocolate), keep IVF at 75ml/hr may heplock IV when pt tolerating po -OOB with PT (pt must remain flexed at core) -Social work, vns -Plan for d/c tomorrow d/w with attending Dr Phillip
[2018-11-17] MEDS ORDERED: ONDANSETRON 4 MG/2 ML VIAL IVPUSH PRN (08:08)
--- NOTE | 2018-11-17 09:05 | PN ---
Physical Exam: SUBJECTIVE: Patient seen and examined at bedside. pt states her pain is well controlled. pt states she is having palpitations. pt states overnight she had n/ v. denies SOB or CP OBJECTIVE: Vital Signs Period Temp Pulse Resp BP Sys/Ryan Pulse Ox Last 24 Hr 98.9 F-99 F 82-98 15-22 88-98/58-65 98 GENERAL: The patient is awake, alert, and fully oriented, in no acute distress. LUNGS: Breath sounds equal, clear to auscultation bilaterally, no wheezes, no crackles, no accessory muscle use. HEART: Regular rate and rhythm, S1, S2 without murmur, rub or gallop. ABDOMEN: Soft, nontender, nondistended, normoactive bowel sounds, no guarding EXTREMITIES: 2+ pulses, warm, well-perfused, no edema. SKIN: Warm, dry, normal turgor, no rashes or lesions noted Laboratory Results - last 24 hr 11/16/18 11/17/18 15:10 06:45 WBC 6.9 6.6 RBC 2.81 L 2.53 L Hgb 7.6 L 7.1 L Hct 23.8 L 21.4 L MCV 84.8 84.4 MCH 27.2 28.1 MCHC 32.1 33.3 RDW 14.1 14.2 Plt Count 207 195 MPV 8.3 8.7 Absolute Neuts (auto) 5.4 Neutrophils % 82.0 Lymphocytes % 13.3 Monocytes % 4.5 Eosinophils % 0.0 Basophils % 0.2 Nucleated RBC % 0 Current Medications Acetaminophen (Tylenol -) 650 mg PO Q4H PRN PRN Reason: FEVER Ascorbic Acid (Vitamin C -) 250 mg PO BID [facility] Last Admin: 11/16/18 21:29 Dose: 250 mg Aspirin (Ecotrin -) 325 mg PO DAILY [facility] Last Admin: 11/16/18 09:27 Dose: 325 mg Docusate Sodium (Colace -) 100 mg PO BID [facility] Last Admin: 11/16/18 21:29 Dose: 100 mg Enoxaparin Sodium (Lovenox -) 40 mg SQ DAILY [facility] Last Admin: 11/16/18 09:28 Dose: 40 mg Ferrous Sulfate (Feosol -) 325 mg PO TIDCM [facility] Last Admin: 11/16/18 18:38 Dose: 325 mg Dextrose/Sodium Chloride (D5-1/2ns -) 1,000 mls @ 125 mls/hr IV [facility]IR [facility] Last Admin: 11/16/18 18:38 Dose: Not Given Cefazolin Sodium 1 gm/ (Dextrose) 50 mls @ 100 mls/hr IVPB Q6H-IV [facility] Stop: 11/17/18 21:29 Last Admin: 11/17/18 02:21 Dose: 100 mls/hr Sodium Chloride (Normal Saline -) 1,000 mls @ 1,000 mls/hr IV ASDIR [facility] Last Admin: 11/16/18 10:29 Dose: 1,000 mls/hr Ketorolac Tromethamine (Toradol Injection -) 30 mg IVPUSH Q6H PRN PRN Reason: PAIN LEVEL 4 - 6 Stop: 11/21/18 08:30 Last Admin: 11/16/18 23:31 Dose: 30 mg Ondansetron HCl (Zofran Injection) 4 mg IVPUSH Q6H PRN PRN Reason: NAUSEA AND/OR VOMITING Oxycodone HCl (Roxicodone -) 5 mg PO Q4H PRN PRN Reason: PAIN 4-6; IF KETORLAC NT WORK Oxycodone HCl (Roxicodone -) 10 mg PO Q4H PRN PRN Reason: PAIN LEVEL 7-10 Last Admin: 11/16/18 12:28 Dose: 10 mg Polyethylene Glycol (Miralax (For Daily Use) -) 17 gm PO DAILY PRN PRN Reason: CONSTIPATION Senna (Senna -) 1 tab PO HS [facility] Last Admin: 11/16/18 21:29 Dose: 1 tab ASSESSMENT/PLAN: 38 yo F with PMH of bilateral breast CA and anemia presented s/p b/l mastectomy , L sentinel LN biopsy, deep flap OPHELIA, axillary LN dissection- PO day 2, by Dr. Tate. #Neuro -intact, AAOx3 Heme/onc s/p b/l mastectomy, L sentinel LN biopsy, deep flap OPHELIA, axillary LN dissection - PO day 0 -c/w jose hugger to flap - continuous -flap - doppler q 2 hrs until 12pm then can check q4hrs. -monitor drain output -c/w ancef x 8 doses -asa 325mg qd -Continue current pain regimen Toradol 30mg q6hrs prn, Ofirmev 1g q6hrs scheduled, Oxy 5/10mg q4hrs prn -zofran increased from 4mg to 8mg -monitor H/H. Hgb 7.1 will transfuse 2 units pRBC -OOB with PT (pt must remain flexed at core) -Feosol 325mg TID ordered Cardio -c/w tele monitoring Pulm -continue incentive spirometry F/E/N D5 1/2NS 75 cc/hr continue to follow lytes clear liq diet. advance as tolerated(No caffeine, no chocolate) DVT PPX: lovenox per surgery SCD's, TREVIN's Lines/tubes +kennedy +2 COLEEN drains on R, 3 COLEEN drains on L breast Dispo continue ICU care and flap monitoring Visit type - Emergency Visit Emergency Visit: No - New Patient This patient is new to me today: Yes - Critical Care Critical Care patient: Yes Total Critical Care Time (in minutes): 36 Critical Care Statement: The care of this patient involved high complexity decision making to prevent further life threatening deterioration of the patient 's condition and/or to evaluate & treat vital organ system(s) failure or risk of failure. ATTENDING PHYSICIAN STATEMENT I saw and evaluated the patient. I reviewed the resident's note and discussed the case with the resident. I agree with the resident's findings and plan as documented. SUBJECTIVE: OBJECTIVE: ASSESSMENT AND PLAN:
[2018-11-17] MEDS ORDERED: ceFAZolin SODIUM 1 GM VIAL ONE ×2 (09:19→21:18)
[2018-11-17] MEDS ORDERED: DEXTROSE 5%-WATER - 50 ML IVPB ONE ×2 (09:20→21:18)
[2018-11-17] MEDS: ASPIRIN 325 MG ENTERIC COATED TABLET (FP) PO SCH (09:22)
[2018-11-17] MEDS: FERROUS SO4 325 MG TABLET (FP) PO SCH ×3 (09:22→19:09)
[2018-11-17] MEDS ORDERED: ASCORBIC ACID 500 MG TABLET (FP) ONE (09:38)
--- NOTE | 2018-11-17 09:41 | PN ---
Progress Note, Physician Chief Complaint: S/P bilateral mastectomy with left ANDx and OPHELIA reconstruction POD#2 History of Present Illness: Patient was seen at the bedside this am with Dr. Jimenez. She continues to complain of nausea and vomiting as well as dizziness with minimal activity. - Current Medication List Current Medications: Active Medications Acetaminophen (Tylenol -) 650 mg PO Q4H PRN PRN Reason: FEVER Ascorbic Acid (Vitamin C -) 250 mg PO BID [facility] Last Admin: 11/16/18 21:29 Dose: 250 mg Aspirin (Ecotrin -) 325 mg PO DAILY [facility] Last Admin: 11/17/18 09:22 Dose: 325 mg Docusate Sodium (Colace -) 100 mg PO BID [facility] Last Admin: 11/16/18 21:29 Dose: 100 mg Enoxaparin Sodium (Lovenox -) 40 mg SQ DAILY [facility] Last Admin: 11/16/18 09:28 Dose: 40 mg Ferrous Sulfate (Feosol -) 325 mg PO TIDCM [facility] Last Admin: 11/17/18 09:22 Dose: 325 mg Dextrose/Sodium Chloride (D5-1/2ns -) 1,000 mls @ 125 mls/hr IV ASDIR [facility] Last Admin: 11/16/18 18:38 Dose: Not Given Cefazolin Sodium 1 gm/ (Dextrose) 50 mls @ 100 mls/hr IVPB Q6H-IV [facility] Stop: 11/17/18 21:29 Last Admin: 11/17/18 09:23 Dose: 100 mls/hr Sodium Chloride (Normal Saline -) 1,000 mls @ 1,000 mls/hr IV ASDIR [facility] Last Admin: 11/16/18 10:29 Dose: 1,000 mls/hr Ketorolac Tromethamine (Toradol Injection -) 30 mg IVPUSH Q6H PRN PRN Reason: PAIN LEVEL 4 - 6 Stop: 11/21/18 08:30 Last Admin: 11/16/18 23:31 Dose: 30 mg Ondansetron HCl (Zofran Injection) 4 mg IVPUSH Q6H PRN PRN Reason: NAUSEA AND/OR VOMITING Oxycodone HCl (Roxicodone -) 5 mg PO Q4H PRN PRN Reason: PAIN 4-6; IF KETORLAC NT WORK Oxycodone HCl (Roxicodone -) 10 mg PO Q4H PRN PRN Reason: PAIN LEVEL 7-10 Last Admin: 11/16/18 12:28 Dose: 10 mg Polyethylene Glycol (Miralax (For Daily Use) -) 17 gm PO DAILY PRN PRN Reason: CONSTIPATION Senna (Senna -) 1 tab PO HS [facility] Last Admin: 11/16/18 21:29 Dose: 1 tab - Objective Vital Signs: Vital Signs Temperature 98.4 F 11/17/18 07:37 Pulse Rate 80 11/17/18 07:37 Respiratory Rate 16 11/17/18 07:37 Blood Pressure 94/58 L 11/17/18 07:37 O2 Sat by Pulse Oximetry (%) 100 11/17/18 09:00 Constitutional: Yes: Calm Breast(s): Yes: Other (Bilateral flaps with good color, no erythema or discharge noted bilaterally. Good doppler signals noted bilaterally. JPs intact to bulb suction with serosanginous discharge.) Extremities: Yes: Other (Swelling right more then left hand. Patient able to make a fist and has good range of motion.) Edema: Yes Wound/Incision: Yes: Other (Abdominal incision is C/D/I. JPs intact.) Labs: CBC, BMP 11/17/18 06:45 11/16/18 05:45 Problem List - Problems (1) Breast cancer, left Assessment/Plan: S/P bilateral mastectomy with OPHELIA reconstruction POD#2 Anemia Code(s): C50.912 - MALIGNANT NEOPLASM OF UNSPECIFIED SITE OF LEFT FEMALE BREAST Qualifiers: Breast location: overlapping sites of breast Estrogen receptor status: positive Patient sex: female Qualified Code(s): C50.812 - Malignant neoplasm of overlapping sites of left female breast; Z17.0 - Estrogen receptor positive status [ER+] Assessment/Plan Plan: Patient is symptomatic therefore she will receive 2U of PRBCs this am. Continue to follow vitals and outputs. Flap monitoring as per OPHELIA protocol. Case discussed with Dr. Benítez, Dr. Jimenez and the resident. After the transfusion, patient to be out of bed with assistance. Plan for discharge tomorrow.
[2018-11-17] MEDS: DOCUSATE SODIUM 100 MG CAPSULE (FP) PO SCH ×2 (09:42→21:38)
[2018-11-17] MEDS: ENOXAPARIN NA (PORCINE) 40 MG/0.4 ML DISP.SYRIN SQ SCH (09:42)
[2018-11-17] MEDS: ASCORBIC ACID 250 MG TABLET (FP) PO SCH ×2 (09:42→21:38)
[2018-11-17] MEDS ORDERED: ACETAMINOPHEN 325 MG TABLET (FP) PO PRN (10:00)
[2018-11-17] MEDS: SODIUM CHLORIDE 1,000 ML IV SCH (11:00)
--- NOTE | 2018-11-17 11:27 | PN ---
Teaching Attending Note Name of Resident: Jeni Wild ATTENDING PHYSICIAN STATEMENT I saw and evaluated the patient. I reviewed the resident's note and discussed the case with the resident. I agree with the resident's findings and plan as documented. SUBJECTIVE: Pt seen and examined in the ICU. Pain better controlled today. Denies shortness of breath or chest pain. No fevers or chills. OBJECTIVE: Vital Signs Period Temp Pulse Resp BP Sys/Ryan Pulse Ox Last 24 Hr 98.4 F-99 F 80-98 16-22 89-98/58-65 98-100 Intake & Output 11/14/18 11/15/18 11/16/18 11/17/18 23:59 23:59 23:59 23:59 Intake Total 4950 2575 1850 Output Total 2212 2380 2250 Balance 2738 195 -400 Weight 51.71 kg Gen: NAD at rest Heart: RRR Lung: decreased breath sounds at the bases Abd: soft, dressed Ext: no edema CBC, BMP 11/17/18 06:45 11/16/18 05:45 Active Medications Acetaminophen (Tylenol -) 650 mg PO Q4H PRN PRN Reason: FEVER Ascorbic Acid (Vitamin C -) 250 mg PO BID [facility] Last Admin: 11/17/18 09:42 Dose: 250 mg Aspirin (Ecotrin -) 325 mg PO DAILY [facility] Last Admin: 11/17/18 09:22 Dose: 325 mg Docusate Sodium (Colace -) 100 mg PO BID [facility] Last Admin: 11/17/18 09:42 Dose: 100 mg Enoxaparin Sodium (Lovenox -) 40 mg SQ DAILY [facility] Last Admin: 11/17/18 09:42 Dose: 40 mg Ferrous Sulfate (Feosol -) 325 mg PO TIDCM [facility] Last Admin: 11/17/18 09:22 Dose: 325 mg Dextrose/Sodium Chloride (D5-1/2ns -) 1,000 mls @ 125 mls/hr IV ASDIR [facility] Last Admin: 11/16/18 18:38 Dose: Not Given Cefazolin Sodium 1 gm/ (Dextrose) 50 mls @ 100 mls/hr IVPB Q6H-IV [facility] Stop: 11/17/18 21:29 Last Admin: 11/17/18 09:23 Dose: 100 mls/hr Sodium Chloride (Normal Saline -) 1,000 mls @ 1,000 mls/hr IV ASDIR [facility] Last Admin: 11/16/18 10:29 Dose: 1,000 mls/hr Ketorolac Tromethamine (Toradol Injection -) 30 mg IVPUSH Q6H PRN PRN Reason: PAIN LEVEL 4 - 6 Stop: 11/21/18 08:30 Last Admin: 11/16/18 23:31 Dose: 30 mg Ondansetron HCl (Zofran Injection) 4 mg IVPUSH Q6H PRN PRN Reason: NAUSEA AND/OR VOMITING Oxycodone HCl (Roxicodone -) 5 mg PO Q4H PRN PRN Reason: PAIN 4-6; IF KETORLAC NT WORK Oxycodone HCl (Roxicodone -) 10 mg PO Q4H PRN PRN Reason: PAIN LEVEL 7-10 Last Admin: 11/16/18 12:28 Dose: 10 mg Polyethylene Glycol (Miralax (For Daily Use) -) 17 gm PO DAILY PRN PRN Reason: CONSTIPATION Senna (Senna -) 1 tab PO [facility] Last Admin: 11/16/18 21:29 Dose: 1 tab ASSESSMENT AND PLAN: Bilateral Breast Ca s/p Bilateral Mastectomies/LN biopsy/OPHELIA/LN dissection Anemia - pain control - incentive spirometry - flap monitoring - monitor drain output - transfuse PRBC - monitor H/H - IVF - DVT prophylaxis - disposition per surgery
[2018-11-17] MEDS: KETOROLAC TROMETHAMINE 30 MG/1 ML VIAL IVPUSH PRN ×2 (14:17→23:33)
[2018-11-17] MEDS: DEXTROSE 5%-0.45% SALINE 1,000 ML IV SCH (17:50)
[2018-11-17] MEDS: oxyCODONE HCL 5 MG TABLET PO PRN (19:09)
[2018-11-17] MEDS: SENNOSIDES 8.6MG TABLET (FP) PO SCH (21:38)
[2018-11-17 22:03] LABS: HEMATOCRIT 31.8 % (32.4-45.2); MCH 28.5 pg (25.7-33.7); MCHC 34.6 g/dl (32.0-36.0); MEAN CELL VOLUME 82.4 fl (80-96); MEAN PLT VOLUME 8.4 fl (7.5-11.1); PLATELET COUNT 212 K/MM3 (134-434); RBC 3.86 M/mm3 (3.60-5.2); RDW 14.1 % (11.6-15.6); WHITE BLOOD COUNT 9.3 K/mm3 (4.0-10.0)
[2018-11-18] MEDS: oxyCODONE HCL 5 MG TABLET PO PRN ×2 (05:51→11:07)
[2018-11-18 06:53] LABS: BASO % 0.2 % (0-2.0); EOS % 0.7 % (0-4.5); HEMATOCRIT 30.4 % (32.4-45.2); HEMOGLOBIN 10.5 GM/dL (10.7-15.3); LYMPH % 24.1 % (8-40); MCH 28.7 pg (25.7-33.7); MCHC 34.5 g/dl (32.0-36.0); MEAN CELL VOLUME 83.2 fl (80-96); MONO % 5.9 % (3.8-10.2); NEUT % 69.1 % (42.8-82.8); PLATELET COUNT 233 K/MM3 (134-434); RBC 3.65 M/mm3 (3.60-5.2); WHITE BLOOD COUNT 6.7 K/mm3 (4.0-10.0)
[2018-11-18 07:16] LABS: BLOOD UREA NITROGEN 4.9 mg/dL (7-18); CALCIUM 7.6 mg/dL (8.5-10.1); CREATININE 0.4 mg/dL (0.55-1.3); MAGNESIUM 1.8 mg/dL (1.8-2.4); PHOSPHOROUS 1.5 mg/dL (2.5-4.9); POTASSIUM 3.2 mmol/L (3.5-5.1)
--- NOTE | 2018-11-18 08:12 | PN ---
Progress Note (short form) - Note Progress Note: 38yo F s/p b/l mastectomy and DEIP flaps, POD3. Pt seen and examined in the ICU. Pt states that she is feeling much better today. Denies n/v is tolerating regular PO. Pt ambulated yesterday. No fever, chills. Pt received 2 units prbcs yesterday and is feeling better. HGB now 10.5 Vital Signs Temp 98.9 F 11/18/18 00:00 Pulse 89 11/18/18 04:00 Resp 15 11/18/18 04:00 BP 111/74 11/18/18 04:00 Pulse Ox 100 11/17/18 20:20 Intake & Output 11/17/18 11/17/18 11/18/18 11:59 23:59 11:59 Intake Total 1850 1930 Output Total 2300 2305 100 Balance -450 -375 -100 Intake: IV 1500 750 D5-1/2Ns - 1,000 ml @ 125 1500 750 mls/hr IV ASDIR [facility] Rx#: [id number] IVPB 300 100 Oral 50 380 Packed Cells 700 Output: Drainage 300 105 100 #1 Right Upper Breast 30 10 20 #2 Right Lower Abdomen 40 10 30 #3 Left Upper Breast 40 20 10 #4 Left Upper Chest 140 35 20 Left Abdomen 50 30 20 Urine 1999 2199 Bishop 1999 2199 Other: Voiding Method Indwelling Catheter Indwelling Catheter Bowel Movement No No CBC, BMP 11/18/18 06:15 11/18/18 06:15 PE: Gen: A&O x3 Resp: breathing comfortably Abd: soft, mild tenderness, nondistended, dressing in place Breast: flaps pink, dopplarable pulses, drains in place with serosanguinous drainage. Ext: no edema Problem List - Problems (1) Breast cancer, left Assessment/Plan: Plan -pt should be able to go home today, continue ASA -follow up with Dr. Jimenez/Marjan next week in the office as outpatient Code(s): C50.912 - MALIGNANT NEOPLASM OF UNSPECIFIED SITE OF LEFT FEMALE BREAST Qualifiers: Breast location: overlapping sites of breast Estrogen receptor status: positive Patient sex: female Qualified Code(s): C50.812 - Malignant neoplasm of overlapping sites of left female breast; Z17.0 - Estrogen receptor positive status [ER+]
[2018-11-18] MEDS ORDERED: POTASSIUM CHLORIDE TABS 20 MEQ TABLET.ER (FP) PO ONE (08:20)
[2018-11-18] MEDS ORDERED: NAPH,MB-DB/K PH,MBDB POWDER PACKET PO ONE (08:21)
[2018-11-18] MEDS ORDERED: PT OWN MED DRAWER 7, Y5N ONE (08:35)
[2018-11-18] MEDS: FERROUS SO4 325 MG TABLET (FP) PO SCH ×2 (08:41→11:08)
[2018-11-18] MEDS: ASCORBIC ACID 250 MG TABLET (FP) PO SCH (10:16)
[2018-11-18] MEDS: ENOXAPARIN NA (PORCINE) 40 MG/0.4 ML DISP.SYRIN SQ SCH (10:16)
[2018-11-18] MEDS: DOCUSATE SODIUM 100 MG CAPSULE (FP) PO SCH (10:16)
[2018-11-18] MEDS: ASPIRIN 325 MG ENTERIC COATED TABLET (FP) PO SCH (10:17)
--- NOTE | 2018-11-18 10:29 | SURG ---
Surgery Newspaper Columnist Note Newspaper Columnist: Twin Garcia PA-C Date of Service: 11/11/18 Diagnosis: Left breast cancer Procedure: Bilateral OPHELIA reconstruction after bilateral mastectomy; lymphoscintogram I was present for the entirety of the operative procedure. For further detail, please refer to operative report. Visit type - Case Type Case Type: Scheduled - New patient This patient is new to me today: Yes Date on this admission: 11/18/18
--- NOTE | 2018-11-18 10:51 | PN ---
Teaching Attending Note Name of Resident: Ed Rodriguez ATTENDING PHYSICIAN STATEMENT I saw and evaluated the patient. I reviewed the resident's note and discussed the case with the resident. I agree with the resident's findings and plan as documented. SUBJECTIVE: Patient seen and examined in the ICU. Pain better controlled today. Denies shortness of breath or chest pain. No fevers or chills. OBJECTIVE: Intake & Output 11/15/18 11/16/18 11/17/18 11/18/18 23:59 23:59 23:59 23:59 Intake Total 4950 2575 3780 Output Total 2212 2380 4605 100 Balance 2738 195 -825 -100 Last Vital Signs Temp Pulse Resp BP Pulse Ox 98.9 F 89 15 111/74 100 11/18/18 00:00 11/18/18 04:00 11/18/18 04:00 11/18/18 04:00 11/17/18 20:20 Active Medications Acetaminophen (Tylenol -) 650 mg PO Q4H PRN PRN Reason: FEVER Ascorbic Acid (Vitamin C -) 250 mg PO BID [facility] Last Admin: 11/18/18 10:16 Dose: 250 mg Aspirin (Ecotrin -) 325 mg PO DAILY [facility] Last Admin: 11/18/18 10:17 Dose: 325 mg Docusate Sodium (Colace -) 100 mg PO BID [facility] Last Admin: 11/18/18 10:16 Dose: 100 mg Enoxaparin Sodium (Lovenox -) 40 mg SQ DAILY [facility] Last Admin: 11/18/18 10:16 Dose: 40 mg Ferrous Sulfate (Feosol -) 325 mg PO TIDCM [facility] Last Admin: 11/18/18 08:41 Dose: 325 mg Ketorolac Tromethamine (Toradol Injection -) 30 mg IVPUSH Q6H PRN PRN Reason: PAIN LEVEL 4 - 6 Stop: 11/21/18 08:30 Last Admin: 11/17/18 23:33 Dose: 30 mg Ondansetron HCl (Zofran Injection) 4 mg IVPUSH Q6H PRN PRN Reason: NAUSEA AND/OR VOMITING Oxycodone HCl (Roxicodone -) 5 mg PO Q4H PRN PRN Reason: PAIN 4-6; IF KETORLAC NT WORK Last Admin: 11/18/18 05:51 Dose: 5 mg Oxycodone HCl (Roxicodone -) 10 mg PO Q4H PRN PRN Reason: PAIN LEVEL 7-10 Last Admin: 11/16/18 12:28 Dose: 10 mg Polyethylene Glycol (Miralax (For Daily Use) -) 17 gm PO DAILY PRN PRN Reason: CONSTIPATION Senna (Senna -) 1 tab PO HS [facility] Last Admin: 11/17/18 21:38 Dose: 1 tab Gen: NAD at rest Heart: RRR Lung: decreased breath sounds at the bases Abd: soft, dressed Ext: no edema Laboratory Results - last 24 hr 11/15/18 11/17/18 11/18/18 06:25 21:00 06:15 WBC 9.3 6.7 RBC 3.86 3.65 Hgb 11.0 10.5 L Hct 31.8 L D 30.4 L MCV 82.4 83.2 MCH 28.5 28.7 MCHC 34.6 34.5 RDW 14.1 14.0 Plt Count 212 233 MPV 8.4 8.0 Absolute Neuts (auto) 4.6 Neutrophils % 69.1 Lymphocytes % 24.1 D Monocytes % 5.9 Eosinophils % 0.7 D Basophils % 0.2 Nucleated RBC % 0 Sodium Potassium Chloride Carbon Dioxide Anion Gap BUN Creatinine Est GFR (CKD-EPI)AfAm Est GFR (CKD-EPI)NonAf Random Glucose Calcium Phosphorus Magnesium Blood Type AB POSITIVE Antibody Screen Negative Crossmatch See Detail 11/18/18 06:15 WBC RBC Hgb Hct MCV MCH MCHC RDW Plt Count MPV Absolute Neuts (auto) Neutrophils % Lymphocytes % Monocytes % Eosinophils % Basophils % Nucleated RBC % Sodium 145 Potassium 3.2 L Chloride 110 H Carbon Dioxide 29 Anion Gap 6 L BUN 4.9 L Creatinine 0.4 L Est GFR (CKD-EPI)AfAm 154.22 Est GFR (CKD-EPI)NonAf 133.06 Random Glucose 86 Calcium 7.6 L Phosphorus 1.5 L Magnesium 1.8 Blood Type Antibody Screen Crossmatch ASSESSMENT AND PLAN: Bilateral Breast Ca s/p Bilateral Mastectomies/LN biopsy/OPHELIA/LN dissection Anemia - pain control - incentive spirometry - flap monitoring - monitor drain output - DVT prophylaxis - DC planning Dr Wray
[2018-11-18 11:02] VITALS: TEMP 97.8
--- NOTE | 2018-11-18 12:54 | PN ---
Physical Exam: SUBJECTIVE: Patient seen and examined at bedside in the ICU. Reports that her pain is well controlled. Denies chest pain or shortness of breath. Denies fever or chills. Denies bleeding or purulent discharge from incision sites. OBJECTIVE: Vital Signs Period Temp Pulse Resp BP Sys/Rayn Pulse Ox Last 24 Hr 97.8 F-100 F 75-103 11-115 99-121/70-79 100-100 GENERAL: The patient is awake, alert, and fully oriented, in no acute distress. HEAD: Normal with no signs of trauma. EYES: PERRL, extraocular movements intact, sclera anicteric, conjunctiva clear. No ptosis. ENT: Ears normal, nares patent, oropharynx clear without exudates, moist mucous membranes. NECK: Trachea midline, full range of motion, supple. LUNGS: Breath sounds equal, clear to auscultation bilaterally, no wheezes, no crackles, no accessory muscle use. CHEST: Bandages and drains in place. Incisions clean, dry, intact. Appropriate tenderness to palpation. HEART: Regular rate and rhythm, S1, S2 without murmur, rub or gallop. ABDOMEN: Soft, nontender, nondistended. Bandages and drains in place. Incisions clean/dry/intact. Appropriate tenderness to palpation. EXTREMITIES: 2+ pulses, warm, well-perfused, no edema. NEUROLOGICAL: Cranial nerves II through XII grossly intact. Normal speech, gait not observed. PSYCH: Normal mood, normal affect. SKIN: Warm, dry, normal turgor, no rashes or lesions noted Laboratory Results - last 24 hr 11/15/18 11/17/18 11/18/18 06:25 21:00 06:15 WBC 9.3 6.7 RBC 3.86 3.65 Hgb 11.0 10.5 L Hct 31.8 L D 30.4 L MCV 82.4 83.2 MCH 28.5 28.7 MCHC 34.6 34.5 RDW 14.1 14.0 Plt Count 212 233 MPV 8.4 8.0 Absolute Neuts (auto) 4.6 Neutrophils % 69.1 Lymphocytes % 24.1 D Monocytes % 5.9 Eosinophils % 0.7 D Basophils % 0.2 Nucleated RBC % 0 Sodium Potassium Chloride Carbon Dioxide Anion Gap BUN Creatinine Est GFR (CKD-EPI)AfAm Est GFR (CKD-EPI)NonAf Random Glucose Calcium Phosphorus Magnesium Blood Type AB POSITIVE Antibody Screen Negative Crossmatch See Detail 11/18/18 06:15 WBC RBC Hgb Hct MCV MCH MCHC RDW Plt Count MPV Absolute Neuts (auto) Neutrophils % Lymphocytes % Monocytes % Eosinophils % Basophils % Nucleated RBC % Sodium 145 Potassium 3.2 L Chloride 110 H Carbon Dioxide 29 Anion Gap 6 L BUN 4.9 L Creatinine 0.4 L Est GFR (CKD-EPI)AfAm 154.22 Est GFR (CKD-EPI)NonAf 133.06 Random Glucose 86 Calcium 7.6 L Phosphorus 1.5 L Magnesium 1.8 Blood Type Antibody Screen Crossmatch Active Medications Generic Name Dose Route Start Last Admin Trade Name Freq PRN Reason Stop Dose Admin Acetaminophen 650 mg 11/17/18 10:00 Tylenol - PO Q4H PRN FEVER Ascorbic Acid 250 mg 11/16/18 10:00 11/18/18 10:16 Vitamin C - PO 250 mg BID [facility] Administration Aspirin 325 mg 11/16/18 10:00 11/18/18 10:17 Ecotrin - PO 325 mg DAILY [facility] Administration Docusate Sodium 100 mg 11/15/18 22:00 11/18/18 10:16 Colace - PO 100 mg BID [facility] Administration Enoxaparin Sodium 40 mg 11/16/18 10:00 11/18/18 10:16 Lovenox - SQ 40 mg DAILY [facility] Administration Ferrous Sulfate 325 mg 11/16/18 12:00 11/18/18 11:08 Feosol - PO 325 mg TIDCM [facility] Administration Ketorolac Tromethamine 30 mg 11/16/18 08:31 11/17/18 23:33 Toradol Injection - IVPUSH 11/21/18 08:30 30 mg Q6H PRN Administration PAIN LEVEL 4 - 6 Ondansetron HCl 4 mg 11/17/18 08:08 Zofran Injection IVPUSH Q6H PRN NAUSEA AND/OR VOMITING Oxycodone HCl 5 mg 11/16/18 08:27 11/18/18 11:07 Roxicodone - PO 5 mg Q4H PRN Administration PAIN 4-6; IF KETORLAC NT WORK Oxycodone HCl 10 mg 11/16/18 08:27 11/16/18 12:28 Roxicodone - PO 10 mg Q4H PRN Administration PAIN LEVEL 7-10 Polyethylene Glycol 17 gm 11/16/18 08:29 Miralax (For Daily Use) - PO DAILY PRN CONSTIPATION Senna 1 tab 11/16/18 22:00 11/17/18 21:38 Senna - PO 1 tab HS [facility] Administration ASSESSMENT/PLAN: 38 yo F with PMH of bilateral breast CA and anemia presented s/p b/l mastectomy , L sentinel LN biopsy, deep flap OPHELIA, axillary LN dissection- PO day 3, by Dr. Tate. #Neuro -intact, AAOx3 Heme/onc - s/p b/l mastectomy, L sentinel LN biopsy, deep flap OPHELIA, axillary LN dissection -c/w jose hugger to flap - continuous -flap - doppler q 2 hrs until 12pm then can check q4hrs. -monitor drain output -c/w ancef x 8 doses -asa 325mg qd -Continue current pain regimen Toradol 30mg q6hrs prn, Ofirmev 1g q6hrs scheduled, Oxy 5/10mg q4hrs prn -zofran increased from 4mg to 8mg -monitor H/H. Hgb 7.1 will transfuse 2 units pRBC -OOB with PT (pt must remain flexed at core) -Feosol 325mg TID ordered Cardio -c/w tele monitoring Pulm -continue incentive spirometry F/E/N D5 1/2NS 75 cc/hr continue to follow lytes clear liq diet. advance as tolerated (No caffeine, no chocolate) DVT PPX: lovenox per surgery SCD's, TREVIN's Lines/tubes +kennedy +2 COLEEN drains on R, 3 COLEEN drains on L breast Dispo: d/c home Visit type - Emergency Visit Emergency Visit: No - New Patient This patient is new to me today: No - Critical Care Critical Care patient: Yes Total Critical Care Time (in minutes): 35 Critical Care Statement: The care of this patient involved high complexity decision making to prevent further life threatening deterioration of the patient 's condition and/or to evaluate & treat vital organ system(s) failure or risk of failure. ATTENDING PHYSICIAN STATEMENT I saw and evaluated the patient. I reviewed the resident's note and discussed the case with the resident. I agree with the resident's findings and plan as documented. SUBJECTIVE: OBJECTIVE: ASSESSMENT AND PLAN:
[2018-11-18 17:10] VITALS: BP 107/80; PULSE 86
--- NOTE | 2018-11-18 18:13 | PATH ---
Surgical Pathology Report Patient Name: TONO MOODY [facility] [place]. Rec. #: [id number] /Age/Gender: 1980 (Age: 38) / F Account: [id number] Location: [facility] MANAGER REPORTING Taken: 11/15/2018 Received: 11/16/2018 Reported: 11/18/2018 Physicians: Aric Benítez M.D. Specimen(s) Received A: LEFT AXILLARY SENTINAL LYMPH NODE #1 B: LEFT AXILLARY SENTINAL LYMPH NODE #2 C: LEFT BREAST D: LATERAL ANTERIOR MARGIN, LEFT BREAST E: LEFT AXILARY LYMPH NODES F: RIGHT BREAST Clinical History Left breast cancer Intraoperative Consult Diagnosis A. Left axillary sentinel lymph node #1, FS: One lymph node, positive for metastatic carcinoma (02/15). B. Left axillary sentinel lymph node #2, FS: One lymph node, positive for metastatic carcinoma (02/15). Dr. Gaines/Crystal, 11/15/18. Final Diagnosis A. LEFT AXILLARY SENTINEL LYMPH NODE #1, COUNT 13,453, EXCISION (FS): ONE LYMPH NODE, POSITIVE FOR METASTATIC CARCINOMA (02/15). TUMOR DEPOSIT MEASURES 6 MM IN LARGEST DIMENSION. EXTRANODAL TUMOR INVASION IDENTIFIED. B. LEFT AXILLARY SENTINEL LYMPH NODE #2, COUNT 10.354, BACKGROUND 97, EXCISION (FS): ONE LYMPH NODE, POSITIVE FOR METASTATIC CARCINOMA (02/15). TUMOR DEPOSIT MEASURES 4 MM IN LARGEST DIMENSION. C. LEFT BREAST, MASTECTOMY: INVASIVE DUCTAL CARCINOMA, MODERATELY DIFFERENTIATED (TUBULE SCORE 3/3, NUCLEAR GRADE: 2/3, MITOTIC SCORE: 1/3, TOTAL SCORE 6/9, YE GRADE 2), MEASURING 3.0 CM IN GREATEST DIMENSION, MICROSCOPICALLY. EXTENSIVE DUCTAL CARCINOMA IN SITU (DCIS) PRESENT, INTERMEDIATE NUCLEAR GRADE, CRIBRIFORM AND SOLID PATTERNS, WITH ASSOCIATED NECROSIS AND CALCIFICATIONS. ESTIMATED SIZE OF DCIS IS AT LEAST 50 MM. SURGICAL MARGINS ARE UNINVOLVED BY INVASIVE CARCINOMA. INVASIVE CARCINOMA IS AT LESS THAN 1 MM FROM THE CLOSEST (ANTERIOR SOFT TISSUE) MARGIN. SURGICAL MARGIN IS POSITIVE FOR DCIS. FOCAL DCIS IS PRESENT AT THE ANTERIOR SOFT TISSUE MARGIN. ALSO SEE SPECIMENS D FOR FINAL LATERAL ANTERIOR MARGIN. LYMPHOVASCULAR INVASION IS IDENTIFIED. NIPPLE AND SKIN, UNINVOLVED BY CARCINOMA. REMAINING BREAST TISSUE SHOWS SCLEROSING ADENOSIS, FIBROADENOMA, AND STROMAL FIBROSIS. PRIOR BIOPSY SITE WITH REACTIVE CHANGES. PATHOLOGIC STAGE (pTNM): pT2, pN1a SEE ALSO INVASIVE CARCINOMA CASE SUMMARY BELOW. Comment: Immunohistochemical stains (block C7) performed and interpreted at [facility] show the following results: smooth muscle myosin heavy chain and p63 show loss of the myoepithelial cell layer in the areas of invasive carcinoma. E-Cadherin shows membranous expression in the carcinoma, supports a ductal phenotype. D. LATERAL ANTERIOR MARGIN, LEFT BREAST, EXCISION: BENIGN FIBROADIPOSE TISSUE. E. LEFT AXILLARY LYMPH NODES, DISSECTION: TEN LYMPH NODES, NEGATIVE FOR METASTATIC CARCINOMA (0/10). F. RIGHT BREAST, MASTECTOMY: BENIGN BREAST TISSUE WITH PROLIFERATIVE FIBROCYSTIC CHANGES INCLUDING USUAL DUCTAL HYPERPLASIA, SCLEROSING ADENOSIS, MICROCYST, AND STROMAL FIBROSIS. NIPPLE AND AREOLA SKIN, NEGATIVE FOR MALIGNANCY. Comments Breast Invasive Carcinoma: Surgical Pathology Case Summary (Based on AJCC TNM 8 th edition) Procedure _x_ Total mastectomy (including nipple-sparing and skin-sparing mastectomy) Specimen Laterality _x_ Left Tumor Size Greatest dimension of largest invasive focus >1 mm (millimeters): 30 mm Histologic Type _x_ Invasive carcinoma of no special type (ductal, not otherwise specified) Histologic Grade ([place]gart[place] Histologic Score) Glandular (Acinar)/Tubular Differentiation _x_ Score 3 (<10% of tumor area forming glandular/tubular structures) Nuclear Pleomorphism _x_ Score 2 Mitotic Rate _x_ Score 1 Overall Grade _x_ Grade 2 (scores of 6 or 7) Tumor Focality _x_ Single focus of invasive carcinoma Ductal Carcinoma In Situ (DCIS) _x_ DCIS is present in specimen _x_ Positive for extensive intraductal component (EIC) Size (extent) of DCIS: Estimated size (extent) of DCIS is at least (millimeters): 50 mm Margins Invasive Carcinoma Margins _x_ Uninvolved by invasive carcinoma Distance from closest margin (millimeters): > 1mm Closest margin: Anterior soft tissue margin. The carcinoma is at less than 1 mm from the anterior soft tissue margin in mastectomy (specimen C). Additional final lateral anterior margin (specimen D) is negative for carcinoma. DCIS Margins _x_ Uninvolved by DCIS Closest margin: Anterior soft tissue margin. The carcinoma is present at the anterior soft tissue margin in mastectomy (specimen C). Additional final lateral anterior margin (specimen D) is negative for carcinoma. Regional Lymph Nodes _x_ Involved by tumor cells Number of Lymph Nodes with Macrometastases (>2 mm): 2 Number of Lymph Nodes with Micrometastases (>0.2 mm to 2 mm and/or >200 cells): 0 Number of Lymph Nodes with Isolated Tumor Cells (=0.2 mm and =200 cells): 0 Size of Largest Metastatic Deposit (millimeters): 6 mm Extranodal Extension: _x_ Present Treatment Effect _x_ No known presurgical therapy Lymphovascular Invasion _x_ Present Pathologic Stage Classification (pTNM, AJCC 8th Edition) Primary Tumor (Invasive Carcinoma) (pT) pT2: Tumor >20 mm but =50 mm in greatest dimension Category (pN) _x_ pN1a: Metastases in 1 to 3 axillary lymph nodes, at least 1 metastasis larger than 2.0 mm Biomarker Studies Results of ER and TN studies performed on this specimen (block# C7) at [facility] are as follows: ER (clone [id number] mouse monoclonal antibody by [employer]): 98% nuclear staining with strong intensity (positive). TN (clone16 mouse monoclonal antibody by [employer]): 98% nuclear staining with strong intensity (positive). Results of Her2 (IHC) & Ki-67 studies performed on this specimen (block# C7) at [place], [place] ([id number] ) are as follows: Her2 IHC (EP3 from [employer], formerly known as [id number], using Brush Polymer Refine detection kit): Negative (1+). Ki67: ~40% (high proliferative index) Positive and negative controls (internal if applicable) show appropriate results. Formalin fixation and cold ischemic times are within current ASCO/CAP recommendations for ER, TN and Her2 testing. Electronically Signed Isis Gaines M.D. Gross Description A. Received fresh for immediate intraoperative consultation labeled "left sentinel axillary lymph node #1" is one pink-turk lymph node measuring 1 x 0.7 x 0.5 cm. The specimen is bisected and entirely submitted for frozen section analysis in one cassette, FSA. B. Received fresh for immediate intraoperative consultation labeled "left sentinel axillary lymph node #2" is one pink-turk lymph node measuring 1. x 0.7 x 0.5 cm. The specimen is bisected and entirely submitted for frozen section analysis in one cassette, FSB. MLSZ/11/15/2018 C. Received in formalin, labeled "left breast, long stitch lateral, short stitch superior" is a 265 grams,14 x 14 x 3.3 cm mastectomy specimen with nipple and areolar skin. The nipple and areola skin measures 4.0 x 3.3 cm. There is a short suture marking the superior aspect and a long suture marking the lateral aspect, per the surgeon. The specimen is inked as follows: deep black, anterior soft tissue margin blue, all other margins inked yellow. The specimen is serially sectioned from lateral to medial. Sectioning reveals dense, white, focally firm fibrous tissue. An ill- defined mass is seen at upper outer quadrant approximately 2:00 area. It measures 3.0 cm in greatest dimension, in the background of fibrotic parenchyma. The remaining breast parenchyma shows scattered gritty change at subareolar and 12 o'clock area. Language Arts Teacher sections are submitted in 18 cassettes as follows: 1-4: full face continuing section of the mass in the upper outer quadrant with deep margin in #2 and anterior soft tissue margin in #4; 5: Superior margin. 6: Inferior margin; 7, 8: additional tumor full face continuing sections with anterior margin in #7, inferior margin in #8. 9: lateral margin; 10: nipple and skin; 11: 6:00 hemorrhagic area; 12-13: 12:00 gritty area, deep margin in #12; 14; lateral margin; 15: 3:00 area; 16: upper inner quadrant. 17: lower inner quadrant. 18: lower outer quadrant. Formalin fixation time: Approximately 30 hours D. Received in formalin labeled "lateral anterior margin, left breast stitch armstrong biopsy cavity site ", is a 2.4 x 2.0 x 1.0 cm portion of predominantly adipose tissue with a suture marked biopsy cavity side, per the surgeon. The new margin is inked blue. The specimen is serially sectioned. The specimen is entirely submitted in 3 cassettes. E. Received in formalin labeled "left axillary lymph nodes" are multiple nodular lesions with attached fibroadipose tissue measuring 4 x 3 x 1 cm. Possible 11 lymph nodes are identified ranging in size from 0.2-2.0 cm. All lymph nodes are submitted for in 6cassettes, 1: 4 lymph nodes; 2: 4 lymph nodes; 3: one node, bisected; 4: one node, bisected; 5: one whole node; E6: Possible nodular area in the fibroadipose tissue. F. Received in formalin, labeled "right breast, long stitch lateral, short stitch superior" is a 282 grams,17 x 15 x 3.0 cm mastectomy specimen with nipple and areolar skin. The nipple and areola skin measures 4.0 x 3.3 cm. There is a short suture marking the superior aspect and a long suture marking the lateral aspect, per the surgeon. The specimen is inked as follows: deep black, anterior soft tissue margin blue. The specimen is serially sectioned from lateral to medial. Sectioning reveals dense, white, focally firm fibrous tissue. No masses seen. Language Arts Teacher sections are submitted in 7 cassettes as follows: 1: nipple and skin; 2: upper inner quadrant; 3: lower inner quadrant. 4: center of portion; 5- 6: upper outer quadrant; 7: upper outer quadrant KWS/11/17/2018 sanml/11/15/2018
--- NOTE | 2018-11-21 09:35 | OP ---
DATE OF OPERATION: 11/15/2018 PREOPERATIVE DIAGNOSES: 1. Left breast cancer. 2. Acquired absence of bilateral breasts and nipples. POSTOPERATIVE DIAGNOSES: 1. Left breast cancer. 2. Acquired absence of bilateral breasts and nipples. PROCEDURES: 1. Immediate left breast reconstruction with deep inferior epigastric board filler microvascular free flap (275 g). 2. Immediate left breast reconstruction with deep inferior epigastric board filler microvascular free flap (260 g). 3. Bilateral partial 3rd rib resection. 4. Bilateral exploration of internal mammary vessels with extensive adventitectomies. 5. Bilateral mastectomy skin flap and lower abdominal flap intraoperative angiography using indocyanine green. 6. Processing and interpretation of bilateral intraoperative angiography images. 7. Bilateral ultrasound-guided transverse abdominis plane regional nerve blocks. ATTENDING SURGEON: Lela Mcneil MD CO-SURGEON: Aric Jimenez MD BREAST SURGEON: Aric Benítez MD ANESTHESIA: General endotracheal. ESTIMATED BLOOD LOSS: 250 mL. SPECIMEN: 1. Left total mastectomy to Pathology (262 g). 2. Left total mastectomy to Pathology (273 g). 3. Left axillary lymph node dissection per surgical oncology. DRAINS: 1. Number 15 round Drew drain x2 to left breast. 2. Number 15 round Drew drain x1 to right breast. 3. Number 15 round Drew drain x2 to abdomen. COMPLICATIONS: None. CONDITION: Stable to recovery room, extubated. INDICATIONS: The patient is a 38-year-old female with a recent diagnosis of left breast cancer, who has been recommended for a left skin-sparing mastectomy with sentinel lymph node biopsy. In addition, the patient will undergo a prophylactic right total mastectomy. The patient was evaluated preoperatively for immediate bilateral breast reconstruction and she is most appropriately a candidate for autologous reconstruction using her lower abdominal tissue. The risks, benefits, and alternatives of the reconstructive procedures were discussed with the patient preoperatively in detail and all questions were answered. The risks include but are not limited to bleeding, infection, pain, need for revision or further surgery, partial or complete skin flap loss, partial or complete microvascular free flap loss, damage to neighboring structures including nerves, arteries, veins, and tendons. The patient understands these risks and has elected to proceed with surgery. PROCEDURE: After proper identification and marking the patient in the preoperative holding area, the patient was transferred to the operating room, placed supine on the table and noninvasive anesthesia monitors were applied. Intravenous access was established. General anesthesia was administered, and the patient was intubated without difficulty. SCD boots were applied to bilateral lower extremities. Then 5000 units of subcutaneous heparin was then given. Intravenous antibiotics were then given. At this point, the patient's bilateral breasts as well as abdomen and flanks were prepped and draped in the usual sterile fashion. After a timeout was performed, Dr. Benítez, from surgical oncology, proceeded to perform bilateral skin-sparing mastectomies using a periareolar approach. In addition, a left axillary sentinel lymph node biopsy was performed. The intraoperative frozen section was positive for metastatic disease and therefore a left axillary lymph node dissection was performed. These procedures will all be dictated separately. Concurrently, Dr. Jimenez and Sandeep began working independently as co-surgeons with separate instrument setups. Attention was first turned towards the umbilicus, where skin hooks were placed at the 12 and 6 o'clock position. The umbilicus was circumferentially incised with a number 15 blade. A periumbilical dissection was then performed with Metzenbaum scissors, with care taken to leave adequate periumbilical fat. Next, the superior and inferior limbs of the lower abdominal flap were incised with a number 10 blade. The superior incision was carried down through the full thickness of the subcutaneous tissue, with care taken to bevel outwards. Once the anterior abdominal wall was reached, the superior abdominal skin flap was raised up to the xiphoid process in the midline and the costal margin bilaterally. Next, the inferior incision was carried down in a [id number] fashion through the subcutaneous tissue with electrocautery. Bilateral superficial inferior epigastric veins were identified. Microvascular instruments and techniques were used to perform more proximal dissections along the superficial veins until adequate length and caliber had been achieved. The veins were then ligated and divided at the most proximal extents of the bilateral dissections. The remainder of the subcutaneous tissue was then dissected down to the anterior abdominal wall. At this point, a number 10 blade was used to incise the lower abdominal flap in the midline, and the dissection carried down to the full-thickness of the subcutaneous tissue with electrocautery until the linea alba was reached. Next, attention was turned towards the left lower abdominal flap. This was raised just above the level of the anterior abdominal wall fascia from a lateral to medial direction. Once the inferior epigastric perforators were identified, bipolar electrocautery was used to carefully dissect around them. There were noted to be 4 lateral row perforators with strong Doppler signals to each of them. The decision was made to base the right lower abdominal flap off of these 4 lateral rib perforators. Therefore, the perforators were circumferentially dissected as they exited through the fascia. The fascia was then opened superiorly and inferiorly as well as the intervening fascia between the perforators. At this point, individual retrograde board filler dissections were performed through the full thickness of the rectus abdominis muscle fibers. Care was taken to divide the muscle fibers longitudinally as much as possible. Muscular side branches were individually identified, circumferentially dissected, ligated, and divided. The perforators were dissected down to their takeoffs from the inferior epigastric pedicle. The superior continuation of the pedicle was circumferentially dissected, ligated, and divided. At this point, a more proximal pedicle dissection was performed until adequate length and caliber had been achieved. The remainder of the lower abdominal flap was raised off the anterior abdominal wall and it was then stapled in place. A Doppler signal was achieved on the skin paddle and this was marked with a 5-0 Prolene suture. A circular skin paddle was designed around this and was incised, and the remainder of the flap was de-epithelialized. At this point, attention was turned towards the left lower abdominal flap, which was raised in a similar fashion as to the right side, and therefore only 1 side will be dictated. The left lower abdominal board filler flap was noted to have 2 dominant lateral rib perforators with strong Doppler signals. The individual retrograde board filler dissections were performed in a similar fashion as to the right side and therefore only one side will be dictated. Once the left lower abdominal flap was completely dissected, it was stapled in place, a skin paddle designed, and this flap de-epithelialized in a similar fashion as to the right side, and therefore only one side will be dictated. Once bilateral flaps had been completely dissected and were stapled in place, attention was turned towards the intraoperative angiography. Dr. Benítez had finished the bilateral mastectomies and therefore the [facility] angiography system was brought in to the field and it was sterilely draped. A 4 mL intravenous injection of indocyanine green was given. Angiography of the bilateral mastectomy skin flaps as well as the lower abdominal flaps was then performed. The bilateral angiography images were then processed using relative perfusion data. There was noted to be good perfusion to all zones of the mastectomy skin flaps as well as all zones of the lower abdominal flaps. Once the angiography images were completed, attention was turned towards harvesting of recipient vessels. Attention was first turned towards the left chest pocket, which was copiously irrigated with warm saline solution and loose fat debris was removed. At this point, a local anesthetic mixture of 20 mL of Exparel, 30 mL of 0.25% Marcaine, and 80 mL of normal saline was used to perform an anterior and lateral chest wall field block. A total of 30 mL, was injected into the left anterior and lateral chest martinez at multiple levels. Once this was completed, self-retaining retractors were placed. The interspace between the 2nd and 3rd ribs was identified. The pectoralis major muscles were divided with electrocautery along the course of the fibers overlying this interspace. The muscle fibers were then retracted and the underlying 3rd rib was identified. Electrocautery was used to incise the periosteum and perichondrium at the superior surface of the 3rd rib. A subperiosteal and subperichondrial dissection was then performed around the left 3rd rib at the costochondral junction. Once circumferential dissection had been performed, a partial resection of the left 3rd rib at the costochondral junction was performed. Once an adequate size window had been created, the periosteum, perichondrium, and the deep surface were carefully incised and the underlying internal mammary artery with accompanying medial vein were identified. At this point, a formal exploration of the internal mammary vessels was performed using microvascular instruments and techniques. Extensive adventitectomies were performed in the artery as well as the vein. Once the vessels were adequately prepared, attention was turned towards the right chest pocket, where the exact same procedures were performed, and therefore only one side will be dictated. Once bilateral recipient vessels were completely prepared, attention was turned towards the microvascular transfers. The right lower abdominal flap was ligated and divided at the most proximal extent of the pedicle dissection. It was placed on a sterile scale and noted to weight 275 g. It was brought to the left breast pocket, where it was temporarily stapled in place. At this point, the microvascular anastomoses were performed. A 3.0 mm [employer] utility maintenance worker was used to anastomosis the antegrade stump of the internal mammary vein to the dominant vein of the inferior epigastric system. Release of all clamps revealed good back flow across this anastomosis. Next, attention was turned towards the arterial anastomosis. A primary hand-sewn anastomosis was performed between the internal mammary artery and inferior epigastric artery using an 8-0 nylon suture in a simple running fashion. Release of all clamps revealed good flow across this anastomosis. Next, a 2nd venous anastomosis was performed between the superficial inferior epigastric vein, which was noted to be quite plump and was noted to be draining well once the clip on it was released. This anastomosis was performed using a 2.5-mm [employer] utility maintenance worker between the superficial inferior epigastric vein and the retrograde stump of the internal mammary vein. Release of all clamps revealed good flow across this anastomosis. Examination of the flap at this point noted a slowing down of the pinpoint bleeding on the dermal edges and evaluation of the pedicle revealed no inflow. Therefore, the arterial anastomosis was taken down and there was noted to be a thrombus at the anastomosis. This thrombus was completely removed, and once all thrombus was confirmed to be removed, a 3000 unit intravenous injection of heparin was given by Anesthesia. The internal mammary artery and inferior epigastric artery were then prepared again and an 8-0 nylon suture was used in a simple interrupted fashion to perform the anastomosis again. Release of all clamps revealed immediate improvement in the blood flow to the dermis and a strong biphasic signal on the skin paddle. At this point, the right breast pocket was irrigated and hemostasis was ensured. At this point, attention was turned towards insetting of the flap. The flap was carefully positioned to the left breast pocket. Care was taken to ensure good lie of the pedicles without twisting or kinking. Once this was confirmed, the flap was inset to the chest wall in multiple locations using a 2-0 Vicryl suture in a simple interrupted fashion. Two number 15 round Drew drains were then placed into the left breast pocket, one into the breast pocket, one into the axilla. They were brought out through separate stab incisions laterally and secured to the skin with 3-0 nylon sutures. The mastectomy skin flaps were then redraped and were inset to the microvascular free flap skin paddle using a 3-0 Monocryl in a buried deep dermal fashion, followed by a 3-0 Monocryl Stratafix in a running subcuticular fashion. At the conclusion of the closure on the left breast, there was noted to be a strong biphasic Doppler signal and good perfusion based on capillary refill. Next, attention was turned toward the microvascular transfer to the right breast. The left lower abdominal flap was ligated and divided in the most proximal extent of the pedicle dissection. It was placed on a sterile scale and noted to weigh 260 g. It was brought up to the right breast pocket, where the microvascular anastomoses were performed. A 3.0-mm [employer] utility maintenance worker was used to anastomose the antegrade stump of the internal mammary vein to the larger of the 2 veins of the inferior epigastric system. Release of all clamps revealed good backflow across this anastomosis. Next, a 2nd venous anastomosis was performed between the retrograde stump of the internal mammary vein and the remaining vein of the inferior epigastric system using a 2.5-mm [employer] utility maintenance worker. Release of all clamps revealed good backflow across this anastomosis well. Next, attention was turned towards the arterial anastomosis. A primary hand-sewn anastomosis was performed between the internal mammary artery and inferior epigastric artery using an 8-0 nylon suture in a simple running fashion. Release of all clamps revealed good flow across this anastomosis and good perfusion to the microvascular free flap. The flap was therefore positioned into the right breast pocket and insetting and closure of the right breast was performed in a similar fashion as to the left side, and therefore only 1 side will be dictated. Concurrently, closure of the abdomen was performed. The bilateral anterior abdominal wall fascial incisions were closed primarily using a 0 PDS barbed suture in simple running fashion. Once the fascial closures were completed, the ultrasound system was brought onto the field and was sterilely draped. The same local anesthetic mixture that had been used for the chest wall field blocks was now used to perform bilateral transverse abdominis plane regional nerve blocks. A total of 30 mL was injected on each side, and once the regional nerve blocks were completed, the patient was placed into a flexed position. Two number 15 round Drew drains were placed in the abdominal dissection pocket and brought out through separate stab incisions laterally and secured to the skin with 3-0 nylon suture. The superior abdominal skin flap was then advanced and was closed in layers using a 2-0 Vicryl in an interrupted buried fashion to reapproximate Charly's fascia, followed by a 3-0 Monocryl in buried deep dermal fashion, and finally 3-0 Monocryl Stratafix in a running subcuticular fashion. The site of the umbilicus transposition had been marked and a vertically oriented ellipse with a core of fat was excised and discarded. The umbilicus was then transposed and inset using a 3-0 PDS in a buried deep dermal fashion, followed by a 4-0 nylon in a simple running fashion. At the conclusion of the closure, Doppler examination revealed strong biphasic Doppler signals bilaterally, therefore, sterile dressings were placed and the patient at this point was placed into a soft surgical bra for inferior pole support and was slowly awakened and extubated without incident and then was transported to recovery room in stable condition. LELA MCNEIL M.D. [id number]
== END 2018-11-18 17:15 | disposition home or self-care (01) | DRG 362 ==
LOC: JSAMEDAYSX 06:13 → EDSTATUS 08:00 → JICU 20:09
PROVIDERS: ADMIT Surgery Surgical Oncology; ATTEND Surgery Surgical Oncology
PROC: 0WB80ZZ Excision of Chest Wall, Open Approach (ICD-10-PCS; 2018-11-15)
PROC: 4A1GXSH Monitoring of Skin and Breast Vascular Perfusion using Indocyanine Green Dye, External Approach (ICD-10-PCS; 2018-11-15)
PROC: 0HTV0ZZ Resection of Bilateral Breast, Open Approach (ICD-10-PCS; principal; 2018-11-15 08:00)
PROC: 07B60ZX Excision of Left Axillary Lymphatic, Open Approach, Diagnostic (ICD-10-PCS; 2018-11-15 08:00)
PROC: 07B50ZX Excision of Right Axillary Lymphatic, Open Approach, Diagnostic (ICD-10-PCS; 2018-11-15 08:00)
PROC: 0HRV077 Replacement of Bilateral Breast using Deep Inferior Epigastric Artery Perforator Flap, Open Approach (ICD-10-PCS; 2018-11-15 08:00)
PROC: 30233N1 Transfusion of Nonautologous Red Blood Cells into Peripheral Vein, Percutaneous Approach (ICD-10-PCS; 2018-11-17)
DX: C50.912 Malignant neoplasm of unspecified site of left female breast (principal); D62 Acute posthemorrhagic anemia; Z17.0 Estrogen receptor positive status [ER+]; C50.112 Malignant neoplasm of central portion of left female breast; D64.9 Anemia, unspecified; C77.3 Secondary and unspecified malignant neoplasm of axilla and upper limb lymph nodes
CPT/HCPCS: 36415; 36430; 36511; 76098-TC-FY; 78195-TC; 80048; 83735; 84100; 84702; 85025; 85027; 86850; 86900; 86901; 86922; 88307-TC; 88331-TC; 88341-TC; 94010; 94760; 97161-GP; A9541; J0131; J1644; J7030; P9038; P9058

== ENCOUNTER 2019-08-23 11:18 | Day surgery (SDC) | payer OTHER ==
[2019-08-22 09:20] VITALS: BMI 21.7
[2019-08-23] MEDS ORDERED: LIDOCAINE HCL 1%, 10 MG/ML (20ML VIAL) ONE ×2 (11:56→12:41)
[2019-08-23] MEDS ORDERED: LIDOCAINE 1%-EPI 1:100,000 30 ML MDV IJ ONE ×2 (11:56→12:06)
[2019-08-23] MEDS ORDERED: BACITRACIN 15 GM TUBE TOPICAL OINTMENT ONE (11:57)
[2019-08-23] MEDS ORDERED: EPINEPHrine/PF 1 MG/1 ML (1:1,000) AMPULE ONE (11:57)
[2019-08-23] MEDS ORDERED: fentaNYL CITRATE 250 MCG/5 ML VIAL ONE (12:06)
[2019-08-23] MEDS ORDERED: PROPOFOL 20 ML ONE (12:06)
[2019-08-23] MEDS ORDERED: LIDOCAINE HCL/PF 2% SDV 5ML VIAL ONE (12:06)
[2019-08-23] MEDS ORDERED: MIDAZOLAM HCL 2 MG/2 ML SINGLE DOSE VIAL ONE (12:06)
[2019-08-23] MEDS ORDERED: ROCURONIUM BROMIDE 50 MG/5 ML SYRINGE ONE (12:06)
[2019-08-23] MEDS ORDERED: SODIUM BICARBONATE 8.4% - 50 ML ONE (12:54)
[2019-08-23] MEDS ORDERED: ceFAZolin SODIUM 1 GM VIAL ONE (12:54)
[2019-08-23] MEDS ORDERED: ceFAZolin SODIUM 1 GM VIAL IVPB ONE (12:57)
[2019-08-23] MEDS ORDERED: DEXAMETHASONE SOD PHOSPHATE 4 MG/1 ML VIAL ONE (13:04)
[2019-08-23] MEDS ORDERED: ONDANSETRON 4 MG/2 ML VIAL IVPUSH PRN (14:54)
[2019-08-23] MEDS ORDERED: ACETAMINOPHEN 1000 MG/100 ML VIAL (NON FORMULARY) IVPB ONE (14:54)
[2019-08-23] MEDS ORDERED: oxyCODONE HCL 5 MG TABLET PO PRN (14:54)
[2019-08-23] MEDS ORDERED: ACETAMINOPHEN INJECTION 100 ML IVPB ONE (14:55)
[2019-08-23] MEDS ORDERED: ONDANSETRON 4 MG/2 ML VIAL ONE ×2 (14:56→17:00)
[2019-08-23] MEDS ORDERED: LACTATED RINGERS SOLUTION 1,000 ML IV SCH (15:00)
--- NOTE | 2019-08-23 15:01 | OP ---
Operative Note - Note: Operative Date: 08/23/19 Pre-Operative Diagnosis: Bilateral chest wall deformity postmastectomy Operation: Bilateral nipple reconstruction. Reconstruction with other technique Post-Operative Diagnosis: Same as Pre-op Surgeon: Allan Jimenez Coding File Clerk: Pardeep Phillip Anesthesia: General Specimens Removed: abd tissue Estimated Blood Loss (mls): 25 Operative Report Dictated: Yes
[2019-08-23] MEDS ORDERED: ONDANSETRON 4 MG/2 ML VIAL IVPUSH ONE (17:00)
[2019-08-23 17:50] VITALS: BP 103/65; PULSE 83; TEMP 98.4
--- NOTE | 2019-08-25 16:14 | PATH ---
Surgical Pathology Report Patient Name: TONO MOODY Med. Rec. #: [id number] /Age/Gender: 1980 (Age: 39) / F Account: [id number] Location: [facility] SURGICAL Taken: 08/23/2019 Received: 08/24/2019 Reported: 08/25/2019 Physicians: Allan Jimenez Specimen(s) Received ABDOMINAL WALL TISSUE Clinical History History of breast cancer Final Diagnosis ABDOMINAL WALL TISSUE, EXCISION: PORTIONS OF SKIN AND SUBCUTANEOUS FIBROADIPOSE TISSUE WITH SCAR AND FOCAL MULTINUCLEATED GIANT CELLS REACTION. NEGATIVE FOR MALIGNANCY. Electronically Signed Isis Gaines M.D. Gross Description Received in formalin labeled "abdominal wall tissue," are 2 turk, irregular, unoriented portions of skin with underlying soft tissue measuring 5.0 x 2.0 x 1.6 cm and 5.5 x 1.8 x 1.8 cm. The epidermal surfaces display well healed scars. Obedience Trainer sections are submitted in one cassette. /08/24/2019 [facility]08/24/2019
--- NOTE | 2019-08-27 16:53 | OP ---
DATE OF OPERATION: 08/23/2019 PREOPERATIVE DIAGNOSES: 1. Personal history of breast cancer. 2. 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 3. Deformity of bilateral constructive breasts. POSTOPERATIVE DIAGNOSES: 1. Personal history of breast cancer. 2. 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 3. Deformity of bilateral constructive breasts. PROCEDURE: 1. Bilateral nipple-areolar reconstruction. 2. Bilateral breast reconstruction with subcutaneous tissue transfer from abdomen and bilateral flanks. SURGEON: Pardeep Mcneil MD COSURGEON: Aric Jimenez MD ANESTHESIA: General with LMA. ESTIMATED BLOOD LOSS: 20 mL. SPECIMEN: None. DRAINS: None. COMPLICATIONS: None. CONDITION: Stable to recovery room, extubated. INDICATIONS: The patient is a 39-year-old female with a history of breast cancer who has previously undergone bilateral skin-sparing mastectomies and immediate autologous reconstruction with deep inferior epigastric press department manager, microvascular free flaps. The patient healed well postoperatively and went on to receive adjuvant radiation therapy to the left breast. The patient has completed all of her adjuvant treatment and now presents to finalize her bilateral breast reconstruction. The risks, benefits, and alternatives of the reconstructive procedure were discussed with the patient preoperatively in detail with the aid of a dramatic art teacher and all questions were answered. The risks include, but are not limited to bleeding, infection, pain, need for revision or further surgery, partial or complete skin flap loss, partial or complete nipple loss, residual breast asymmetry, damage to nearby structures including nerves, arteries, veins, and tendons. The patient understands these risks and has elected to proceed with surgery. DESCRIPTION OF PROCEDURE: After proper identification and marking of the patient in the preoperative holding area, the patient was transported to the operating room and placed supine on the table and noninvasive anesthesia monitors were applied. Intravenous access was established. General anesthesia was administered and the LMA was inserted without difficulty. SCDS were applied to bilateral lower extremities. Intravenous antibiotics were then given. At this point, the patient the patient's bilateral breasts as well as abdomen and flanks were prepped and draped in the usual sterile fashion. At this point, Dr. Jimenez and Sandeep began the reconstruction, working independently as co-surgeons with separate instrument setups. Attention was first turned towards the abdomen where bilateral dog-ear excisions had been planned along the previous lower abdominal scar. These markings were infiltrated with lidocaine with epinephrine. Beginning on the right side, a number 10 blade was used to elliptically excise the redundant lateral skin. The dissection was then carried down through the full-thickness subcutaneous tissue and the fat was cored out in order to resolve the dog-ear. Once this was completed, the skin edges were reapproximated using a 3-0 PDS in a buried deep dermal fashion. After the dog-ear excision was completed on the right side, attention was turned towards the left side where the same procedure was performed and therefore only 1 side will be dictated. With bilateral lower abdominal dog-ear excision sites partially closed, standard tumescent solution was then infiltrated into the subcutaneous plane of the abdomen and bilateral flanks. Once an adequate amount of time was given for this solution to take effect, the [id number] system was loaded with a 5-mm cannula and was hooked up sterilely to the Revolve collection basis. At this point, subcutaneous tissue was harvested from the abdomen and bilateral flanks. Once an adequate amount had been collected, the bilateral lower abdominal access incisions were completely closed using a 4-0 Biosyn suture in a running subcuticular fashion. Dermabond was applied to the closure lines. On the sterile White stand, the lipoaspirate was processed using multiple warm lactated Ringer washes. The isolated adipocytes were loaded into 10-mL syringes in preparation for subcutaneous tissue transfer. Concurrently, bilateral nipple-areolar reconstruction was performed. Beginning on the right side, the site of the nipple mound was confirmed and a modified C-Z flap reconstruction was drawn. All incisions of the nipple reconstruction design were then made in a full-thickness fashion with a number 15 blade. The nipple flaps were then raised with care taken to include an adequate amount of subcutaneous fat per volume. The donor limbs were closed with a 4-0 PDS suture in a buried deep dermal fashion followed by a 4-0 plain gut suture in simple running fashion. The nipple reconstruction limbs were then transposed and inset to each other using a 4-0 PDS in a buried deep dermal fashion followed by a 5-0 plain gut and a combination of a simple interrupted in simple running fashion. Once the nipple reconstruction was completed on the right side, attention was turned towards the left side where the exact same procedure was performed and therefore only 1 side will be dictated. Once bilateral nipple areolar reconstructions were complete, attention was turned towards transfer of the subcutaneous tissue. The adipocytes were brought up to the bilateral breasts and using a modified Hernandez technique, the adipocytes were layered in multiple tissue planes of bilateral breasts in order to correct contour deformities. Care was taken to ensure layering of the adipocytes was performed from multiple directions in order to ensure even distribution. Once bilateral breast deformities had been corrected, the remaining access incisions were closed with 4-0 plain gut sutures in simple interrupted fashion. At this point, all incisions were closed and therefore incisions were washed. The abdomen had been dressed with Dermabond. Sterile nipple dressings were placed bilaterally and at this point, the patient was placed into a soft surgical bra with care taken to ensure adequate padding with fluffs and ABD pads. The patient was also placed into a compressive abdominal binder. At this point, the patient was slowly awakened and extubated without incident and was transported to the recovery room in stable condition. PARDEEP MCNEIL M.D. [id number]
== END 2019-08-23 18:45 | disposition home or self-care (01) ==
LOC: JASU-SURG 11:18
PROVIDERS: ATTEND Plastic Surgery
PROC: 0HTV0ZZ Resection of Bilateral Breast, Open Approach (ICD-10-PCS; principal; 2019-08-23 13:00)
DX: N65.0 Deformity of reconstructed breast (principal); Z85.3 Personal history of malignant neoplasm of breast; Z90.13 Acquired absence of bilateral breasts and nipples
CPT/HCPCS: 84703; 88304-TC; 94760; J0131

== ENCOUNTER 2023-05-19 08:23 | Day surgery (SDC) | payer OTHER ==
[2023-05-14 14:44] VITALS: BMI 19.5
[~2023-05-19 08:23] MED LIST: LACTATED RINGERS SOLUTION 1,000 ML IV SCH; ONDANSETRON 4 MG/2 ML VIAL IVPUSH PRN
[2023-05-19] MEDS ORDERED: PROPOFOL 60 ML ONE (09:33)
[2023-05-19] MEDS ORDERED: MIDAZOLAM HCL 2 MG/2 ML SINGLE DOSE VIAL ONE (09:33)
[2023-05-19] MEDS ORDERED: BUPIVACAINE HCL/EPINEPHRINE/PF 30 ML VIAL IJ ONE ×2 (10:42→11:26)
[2023-05-19] MEDS: BUPIVACAINE 0.25% /EPI 1:200,000 10 ML VIAL NR ONE (11:40)
[2023-05-19] MEDS ORDERED: SUGAMMADEX SODIUM 200 MG/2 ML VIAL ONE (12:09)
[2023-05-19] MEDS ORDERED: FENTANYL CITRATE/PF 50 MCG/ML VIAL ONE ×2 (12:33→12:49)
[2023-05-19] MEDS ORDERED: ACETAMINOPHEN INJECTION 100 ML IVPB ONE (12:33)
[2023-05-19] MEDS: ACETAMINOPHEN 1000 MG/100 ML BAG IVPB ONE (12:38)
[2023-05-19] MEDS ORDERED: LACTATED RINGERS SOLUTION 1,000 ML IV SCH (12:45)
[2023-05-19] MEDS ORDERED: oxyCODONE HCL 5 MG TABLET ONE (14:41)
[2023-05-19] MEDS: oxyCODONE HCL 5 MG TABLET PO PRN (14:45)
[2023-05-19 17:13] VITALS: TEMP 97.1
[2023-05-19 17:18] VITALS: BP 120/72; PULSE 75; RESP 15
== END 2023-05-19 15:00 | disposition home or self-care (01) ==
LOC: FASU 08:23
PROVIDERS: ATTEND Plastic Surgery
PROC: 0HX7XZZ Transfer Abdomen Skin, External Approach (ICD-10-PCS; 2023-05-19)
PROC: 0KX10Z2 Transfer Facial Muscle with Skin and Subcutaneous Tissue, Open Approach (ICD-10-PCS; principal; 2023-05-19 11:27)
DX: M95.8 Other specified acquired deformities of musculoskeletal system (principal); Z85.3 Personal history of malignant neoplasm of breast; Z90.13 Acquired absence of bilateral breasts and nipples
CPT/HCPCS: 81025; 94760; J0131